=== PATIENT | male | born 1945 | race Caucasian/White ===

== ENCOUNTER 2017-11-25 13:10 | Observation (INO) | payer MEDICARE, BC ==
[2017-11-25] MEDS ORDERED: Sodium Chloride 0.9% 10 ML Syringe FLUSH PRN ×2 (13:41→18:00)
[2017-11-25] MEDS ORDERED: Aspirin 81 MG Tab.Chew PO ONE (13:43)
[2017-11-25] MEDS ORDERED: Nitroglycerin 0.4 MG Tab.SL SL ONE (13:43)
[2017-11-25 14:27] LABS: CHLORIDE,CL 101 mmol/L (98-107); SODIUM,NA 140 mmol/L (136-145)
[2017-11-25] MEDS ORDERED: Iopamidol 612 MG/ML 100 ML Bottle IVPUSH ONE (14:42)
--- NOTE | 2017-11-25 15:21 | EDM.PDOC ---
ED HPI GENERAL MEDICAL PROBLEM - General Chief Complaint: Cardiovascular Problem Stated Complaint: LEFT ARM PAIN/SOB Time Seen by Provider: 11/25/17 13:15 Source of Information: Reports: Patient History Limitations: Reports: No Limitations - History of Present Illness INITIAL COMMENTS - FREE TEXT/NARRATIVE: Pt. presents to ER with complaints of shortness of breath, increased peripheral edema, shortness of breath, and L upper extremity discomfort. Pt. denies recent trauma. Denies any substernal chest, back or jaw pain. He states that he has been experiencing this discomfort intermittently for several days. He states that he takes 160mg of oral lasix divided BID. He perviously had been on metolazone but this was discontinued due to renal failure. Pt. states that his last heart cath was in 2006. He had one stent at that time. He had a artery with 70% lesion at that time but it was not stented. He denies any fever, chills, or recent illness. No nausea, vomiting, or diarrhea. He has not been checking his weight. He relates that he has had a significant increase in his peripheral edema. Onset: Today Location: Reports: Chest, Upper Extremity, Left - Related Data Allergies Allergy/AdvReac Type Severity Reaction Status Date / Time atorvastatin calcium Allergy Other Verified 11/25/17 13:32 [From Lipitor] ezetimibe [From Zetia] Allergy Other Verified 11/25/17 13:32 niacin Allergy Other Verified 11/25/17 13:32 Nuwxfrc-Col-Eck Reductase Allergy Other Verified 11/25/17 13:32 Inhibitor streptokinase Allergy Other Verified 11/25/17 13:32 sulfamethoxazole Allergy Rash Verified 11/25/17 13:32 [From Bactrim] trimethoprim [From Bactrim] Allergy Rash Verified 11/25/17 13:32 metformin AdvReac Diarrhea Verified 11/25/17 13:32 surgical tape Allergy Other Uncoded 05/11/16 08:07 Home Meds: Home Meds Acetaminophen [Tylenol] 650 mg PO Q3H PRN 09/01/15 [History] Albuterol Sulfate [Proventil Hfa] 2 puff INH QID PRN 09/01/15 [History] Amoxicillin 2,000 mg PO ONETIME PRN 09/01/15 [History] Febuxostat [Uloric] 80 mg PO DAILY 09/01/15 [History] Flaxseed [Flaxseed Oil] 1,000 mg PO TID 09/01/15 [History] Furosemide 80 mg PO BID 09/01/15 [History] Hydrocodone/Acetaminophen [Hydrocodon-Acetaminophn 10-325] 1 tab PO TID [History] Metoprolol Tartrate 25 mg PO BID 09/01/15 [History] Pramipexole Di-HCl [Pramipexole Dihydrochloride] 0.5 mg PO TID 09/01/15 [History ] Tamsulosin HCl 0.4 mg PO DAILY 09/01/15 [History] Budesonide [Pulmicort] 0.5 mg NEB BIDRT 02/26/16 [History] Formoterol [Perforomist] 20 mcg NEB BIDRT 02/26/16 [History] Colchicine [Colcrys] 0.6 mg PO DAILY tablet 02/29/16 [Rx] Gabapentin [Neurontin] 100 mg PO BEDTIME 05/05/16 [History] Lisinopril 10 mg PO BEDTIME 05/05/16 [History] Nitroglycerin [IJP: Nitroglycerin] 1 tab SL ASDIRECTED 05/05/16 [History] Aspirin 81 mg PO DAILY 11/25/17 [History] Insulin Degludec [Tresiba Flextouch U-200] 160 unit SQ DAILY 11/25/17 [History] Pramipexole [Mirapex] 0.5 mg PO BEDTIME PRN 11/25/17 [History] Past Medical History HEENT History: Reports: Cataract Cardiovascular History: Reports: High Cholesterol, Hypertension, PTCA, Stents Other Cardiovascular History: stable angina, edema Respiratory History: Reports: COPD, Sleep Apnea Other Respiratory History: emphysema, sleep-related hypoventilation Gastrointestinal History: Reports: Other (See Below) Other Gastrointestinal History: Recent weight loss Genitourinary History: Reports: Chronic Renal Insuffiency, Renal Disease Other Genitourinary History: CKD stage 2 GFR 60-89ml/min Musculoskeletal History: Reports: Back Pain, Chronic Other Musculoskeletal History: RLS, pain in joint (lower leg) Neurological History: Reports: Neuropathy, Peripheral Psychiatric History: Reports: None Endocrine/Metabolic History: Reports: Diabetes, Type II, Obesity/BMI 30+ Hematologic History: Reports: None Immunologic History: Reports: None Oncologic (Cancer) History: Reports: None Other Dermatologic History: thin skin, has one small open site near right forarm IV site - Past Surgical History Head Surgeries/Procedures: Reports: None HEENT Surgical History: Reports: Cataract Surgery Cardiovascular Surgical History: Reports: Coronary Artery Stent GI Surgical History: Reports: Cholecystectomy, Colonoscopy, Hernia, Inguinal Musculoskeletal Surgical History: Reports: Joint Replacement Oncologic Surgical History: Reports: None Social & Family History - Family History Family Medical History: Noncontributory - Tobacco Use Smoking Status *Q: Unknown Ever Smoked ED ROS GENERAL - Review of Systems Review Of Systems: See Below Constitutional: Reports: No Symptoms HEENT: Reports: No Symptoms Respiratory: Reports: No Symptoms Cardiovascular: Reports: Chest Pain, Edema Endocrine: Reports: No Symptoms GI/Abdominal: Reports: No Symptoms : Reports: No Symptoms Musculoskeletal: Reports: Arm Pain (left) Skin: Reports: No Symptoms Neurological: Reports: No Symptoms Psychiatric: Reports: No Symptoms Hematologic/Lymphatic: Reports: No Symptoms Immunologic: Reports: No Symptoms ED EXAM, GENERAL - Physical Exam Exam: See Below Exam Limited By: No Limitations General Appearance: Alert, WD/WN, No Apparent Distress Eye Exam: Bilateral Eye: EOMI, Normal Fundi, Normal Inspection, PERRL Ears: Normal External Exam, Normal Canal, Hearing Grossly Normal, Normal TMs Nose: Normal Inspection, Normal Mucosa, No Blood Throat/Mouth: Normal Inspection, Normal Lips, Normal Teeth, Normal Gums, Normal Oropharynx, Normal Voice, No Airway Compromise Head: Atraumatic, Normocephalic Neck: Normal Inspection, Supple, Non-Tender, Full Range of Motion Respiratory/Chest: Chest Non-Tender, Decreased Breath Sounds, Crackles Cardiovascular: Normal Peripheral Pulses, Regular Rate, Rhythm, No Edema, No Gallop, No JVD, No Murmur, No Rub Peripheral Pulses: 4+: Radial (L), Radial (R) GI/Abdominal: Normal Bowel Sounds, Soft, Non-Tender, No Organomegaly, No Distention, No Abnormal Bruit, No Mass Extremities: Normal Range of Motion, Non-Tender, Pedal Edema Neurological: Alert, Oriented, CN II-XII Intact, Normal Cognition, Normal Gait, Normal Reflexes, No Motor/Sensory Deficits Psychiatric: Normal Affect, Normal Mood Skin Exam: Warm, Dry, Intact, Normal Color, No Rash EKG INTERPRETATION EKG Date: 11/25/17 Rhythm: NSR [place]: Normal P-Wave: Present QRS: Normal ST-T: Normal OR/PQ Interval: first degree AV block. No ST changes. Course - Vital Signs Last Recorded V/S: Last Vital Signs Temp 37.5 C 11/25/17 16:39 Pulse 73 11/25/17 16:39 Resp 22 H 11/25/17 16:39 BP 131/67 11/25/17 16:39 Pulse Ox 90 L 11/25/17 16:47 - Orders/Labs/Meds Orders: Active Orders 24 hr Category Date Time Status Chest 2V [CR] Stat Exams 11/25/17 13:41 Taken PE Chest [Ang Chest] [CT] Stat Exams 11/25/17 14:38 Taken Sodium Chloride 0.9% [Saline Flush] Med 11/25/17 13:41 Active 10 ml FLUSH ASDIRECTED PRN Peripheral IV Insertion Adult [OM.PC] Routine Oth 11/25/17 13:42 Ordered Medication Orders Acetaminophen (Tylenol) 650 mg PO Q3H PRN PRN Reason: Pain Hydrocodone Bitart/Acetaminophen ([place] 325-10 Mg) 1 tab PO TID [facility] Aspirin (Aspirin) 81 mg PO DAILY [facility] Budesonide (Pulmicort) 0.5 mg NEB BIDRT [facility] Colchicine (Colcrys) 0.6 mg PO DAILY [facility] Enoxaparin Sodium (Lovenox) 40 mg SUBCUT DAILY [facility] Last Admin: 11/25/17 16:53 Dose: 40 mg Furosemide (Lasix) 80 mg PO BID [facility] Gabapentin (Neurontin) 100 mg PO BEDTIME [facility] Sodium Chloride (Normal Saline) 500 mls @ 1,000 mls/hr IV .BOLUS ONE Stop: 11/25/17 17:28 Lisinopril (Prinivil) 10 mg PO BEDTIME [facility] Metoprolol Tartrate (Lopressor) 25 mg PO BID [facility] Non-Formulary Medication (Febuxostat [Uloric]) 80 mg PO DAILY [facility] Non-Formulary Medication (Formoterol [Perforomist]) 20 mcg NEB BIDRT [facility] Non-Formulary Medication (Insulin Degludec [Tresiba Flextouch U-200]) 160 unit SQ DAILY [facility] Pramipexole Dihydrochloride (Mirapex) 0.5 mg PO TID [facility] Pramipexole Dihydrochloride (Mirapex) 0.5 mg PO BEDTIME PRN PRN Reason: Other Sodium Chloride (Saline Flush) 10 ml FLUSH ASDIRECTED PRN PRN Reason: Keep Vein Open Tamsulosin HCl (Flomax) 0.4 mg PO DAILY [facility] Labs: Laboratory Tests 11/25/17 11/25/17 11/25/17 Range/Units 13:50 13:50 13:50 WBC 7.6 (4.0-10.0) x10^3/uL RBC 4.87 (4.5-6.0) x10^6/uL Hgb 14.7 (14.0-18.0) g/dL Hct 46.5 (40.0-52.0) % MCV 95.5 H (78.0-93.0) fL MCH 30.2 (26.0-32.0) pg MCHC 31.6 L (32.0-36.0) g/dL RDW Coeff of Denise 15.4 H (10.0-15.0) % Plt Count 128 L (130-400) x10^3/uL Neut % (Auto) 69.7 (50.0-80.0) % Lymph % (Auto) 18.1 L (25.0-50.0) % [place] % (Auto) 10.1 (2.0-11.0) % Eos % (Auto) 1.4 (0.0-4.0) % Baso % (Auto) 0.7 (0.2-1.2) % PT 12.9 H (9.6-11.4) SEC INR 1.2 L (2.0-3.5) D-Dimer, Quantitative (<=0.58) mg/LFEU Sodium 140 (136-145) mmol/L Potassium 3.2 L (3.5-5.1) mmol/L Chloride 101 (98-107) mmol/L Carbon Dioxide 33 H (21-32) mmol/L Anion Gap 9.2 L (10-20) mmol/L BUN 18 (7-18) mg/dL Creatinine 1.3 (0.70-1.30) mg/dL Est Cr Clr Drug Dosing TNP Estimated GFR (MDRD) 54 Glucose 155 H (74-106) mg/dL Lactic Acid (0.4-2.0) mmol/L Calcium 9.0 (8.5-10.1) mg/dL Corrected Calcium 9.40 (8.5-10.1) mg/dL Phosphorus 2.9 (2.6-4.7) mg/dL Magnesium 1.6 L (1.8-2.4) mg/dL Total Bilirubin 1.4 H (0.2-1.0) mg/dL AST 42 H (15-37) U/L ALT 29 (16-63) U/L Alkaline Phosphatase 54 (46-116) U/L Troponin I < 0.017 (<=0.056) ng/mL C-Reactive Protein 2.5 H (<=0.9) mg/dL NT-Pro-B Natriuret Pep 136 H (<=125) pg/mL Total Protein 7.7 (6.4-8.2) g/dL Albumin 3.5 (3.4-5.0) g/dL Globulin 4.2 Albumin/Globulin Ratio 0.83 11/25/17 11/25/17 Range/Units 13:50 13:50 WBC (4.0-10.0) x10^3/uL RBC (4.5-6.0) x10^6/uL Hgb (14.0-18.0) g/dL Hct (40.0-52.0) % MCV (78.0-93.0) fL MCH (26.0-32.0) pg MCHC (32.0-36.0) g/dL RDW Coeff of Denise (10.0-15.0) % Plt Count (130-400) x10^3/uL Neut % (Auto) (50.0-80.0) % Lymph % (Auto) (25.0-50.0) % [place] % (Auto) (2.0-11.0) % Eos % (Auto) (0.0-4.0) % Baso % (Auto) (0.2-1.2) % PT (9.6-11.4) SEC INR (2.0-3.5) D-Dimer, Quantitative 0.76 H (<=0.58) mg/LFEU Sodium (136-145) mmol/L Potassium (3.5-5.1) mmol/L Chloride (98-107) mmol/L Carbon Dioxide (21-32) mmol/L Anion Gap (10-20) mmol/L BUN (7-18) mg/dL Creatinine (0.70-1.30) mg/dL Est Cr Clr Drug Dosing Estimated GFR (MDRD) Glucose (74-106) mg/dL Lactic Acid 1.9 (0.4-2.0) mmol/L Calcium (8.5-10.1) mg/dL Corrected Calcium (8.5-10.1) mg/dL Phosphorus (2.6-4.7) mg/dL Magnesium (1.8-2.4) mg/dL Total Bilirubin (0.2-1.0) mg/dL AST (15-37) U/L ALT (16-63) U/L Alkaline Phosphatase (46-116) U/L Troponin I (<=0.056) ng/mL C-Reactive Protein (<=0.9) mg/dL NT-Pro-B Natriuret Pep (<=125) pg/mL Total Protein (6.4-8.2) g/dL Albumin (3.4-5.0) g/dL Globulin Albumin/Globulin Ratio Meds: Medications Generic Name Dose Route Start Last Admin Trade Name Freq PRN Reason Stop Dose Admin Acetaminophen 650 mg 11/25/17 16:59 Tylenol PO Q3H PRN Pain Hydrocodone Bitart/Acetaminophen 1 tab 11/25/17 20:00 [place] 325-10 Mg PO TID [facility] Aspirin 81 mg 11/26/17 08:00 Aspirin PO DAILY [facility] Budesonide 0.5 mg 11/25/17 20:00 Pulmicort NEB BIDRT [facility] Colchicine 0.6 mg 11/26/17 08:00 Colcrys PO DAILY [facility] Enoxaparin Sodium 40 mg 11/25/17 16:15 11/25/17 16:53 Lovenox SUBCUT 40 mg DAILY [facility] Administration Furosemide 80 mg 11/25/17 20:00 Lasix PO BID [facility] Gabapentin 100 mg 11/25/17 20:00 Neurontin PO BEDTIME [facility] Sodium Chloride 500 mls @ 1,000 mls/hr 11/25/17 16:59 Normal Saline IV 11/25/17 17:28 .BOLUS ONE Lisinopril 10 mg 11/25/17 20:00 Prinivil PO BEDTIME [facility] Metoprolol Tartrate 25 mg 11/25/17 20:00 Lopressor PO BID [facility] Non-Formulary Medication 80 mg 11/26/17 08:00 Febuxostat [Uloric] PO DAILY [facility] Non-Formulary Medication 20 mcg 11/25/17 20:00 Formoterol [Perforomist] NEB BIDRT [facility] Non-Formulary Medication 160 unit 11/26/17 08:00 Insulin Degludec [Tresiba Flextouch U-200] SQ DAILY [facility] Pramipexole Dihydrochloride 0.5 mg 11/25/17 20:00 Mirapex PO TID [facility] Pramipexole Dihydrochloride 0.5 mg 11/25/17 16:59 Mirapex PO BEDTIME PRN Other Sodium Chloride 10 ml 11/25/17 13:41 Saline Flush FLUSH ASDIRECTED PRN Keep Vein Open Tamsulosin HCl 0.4 mg 11/26/17 08:00 Flomax PO DAILY [facility] Discontinued Medications Generic Name Dose Route Start Last Admin Trade Name Freq PRN Reason Stop Dose Admin Aspirin 324 mg 11/25/17 13:43 11/25/17 13:15 Aspirin PO 11/25/17 13:44 324 mg ONETIME ONE Administration Iopamidol 100 ml 11/25/17 14:42 11/25/17 14:53 Isovue-300 (61%) IVPUSH 11/25/17 14:43 100 ml ONETIME ONE Administration Nitroglycerin 0.4 mg 11/25/17 13:43 11/25/17 13:52 Nitrostat SL 11/25/17 13:44 0.4 mg ONETIME ONE Administration Departure - Departure Time of Disposition: 15:00 Disposition: Refer to Observation Condition: Good Clinical Impression: CHF (congestive heart failure) - My Orders Last 24 Hours: My Active Orders 11/25/17 13:41 Chest 2V [CR] Stat Sodium Chloride 0.9% [Saline Flush] 10 ml FLUSH ASDIRECTED PRN 11/25/17 13:42 Peripheral IV Insertion Adult [OM.PC] Routine 11/25/17 14:38 PE Chest [Ang Chest] [CT] Stat - Assessment/Plan Last 24 Hours: My Active Orders 11/25/17 13:41 Chest 2V [CR] Stat Sodium Chloride 0.9% [Saline Flush] 10 ml FLUSH ASDIRECTED PRN 11/25/17 13:42 Peripheral IV Insertion Adult [OM.PC] Routine 11/25/17 14:38 PE Chest [Ang Chest] [CT] Stat
[2017-11-25] MEDS: Enoxaparin 40 MG/0.4 ML Syringe SUBCUT SCH (16:53)
[2017-11-25] MEDS ORDERED: Sodium Chloride 0.9% 500 ML IV ONE (16:59)
[2017-11-25] MEDS ORDERED: Pramipexole 0.5 MG Tab PO PRN (16:59)
[2017-11-25] MEDS ORDERED: Acetaminophen 325 MG Tab PO PRN (16:59)
[2017-11-25] MEDS ORDERED: Tamsulosin 0.4 MG Cap.ER PO SCH (20:00)
[2017-11-25] MEDS ORDERED: Lisinopril 10 MG Tab PO SCH (20:00)
[2017-11-25] MEDS ORDERED: Gabapentin 100 MG Cap PO SCH (20:00)
[2017-11-25] MEDS: Metoprolol Tartrate 25 MG Tab PO SCH (21:37)
[2017-11-25] MEDS: Pramipexole 0.5 MG Tab PO SCH (21:38)
[2017-11-25] MEDS: Acetaminophen/HYDROcodone 325-10 MG Tab PO SCH (21:38)
[2017-11-25] MEDS: Albuterol 0.083% 2.5 MG/3 ML Neb Soln INH SCH (21:41)
[2017-11-25] MEDS: Budesonide 0.5 MG/2 ML Neb Susp NEB SCH (21:41)
[2017-11-26] MEDS: Albuterol 0.083% 2.5 MG/3 ML Neb Soln INH SCH (06:59)
[2017-11-26] MEDS: Budesonide 0.5 MG/2 ML Neb Susp NEB SCH (06:59)
[2017-11-26] MEDS ORDERED: Aspirin 81 MG Tab.Chew PO SCH (08:00)
[2017-11-26] MEDS ORDERED: INSULIN DEGLUDEC 160 UNIT SQ SCH (08:00)
[2017-11-26] MEDS ORDERED: FEBUXOSTAT 80 MG PO SCH (08:00)
[2017-11-26] MEDS ORDERED: Furosemide 80 MG Tab PO SCH (08:00)
[2017-11-26] MEDS ORDERED: Colchicine 0.6 MG Tab PO SCH (08:00)
[2017-11-26] MEDS: Acetaminophen/HYDROcodone 325-10 MG Tab PO SCH (08:01)
[2017-11-26] MEDS: Pramipexole 0.5 MG Tab PO SCH (08:04)
[2017-11-26] MEDS: Metoprolol Tartrate 25 MG Tab PO SCH (08:06)
[2017-11-26] MEDS: Enoxaparin 40 MG/0.4 ML Syringe SUBCUT SCH (08:07)
--- NOTE | 2017-11-26 09:19 | PCM.DCSUM1 ---
Discharge Summary - Hospital Course Brief History: Patient with history of CAD admitted with chest and left arm pain. History of CHF and COPD. Stents placed around 2008. Admitted to trend Troponin level due to history and risk. - Discharge Data Discharge Date: 11/26/17 Discharge Disposition: Home, Self-Care 01 Condition: Good - Discharge Diagnosis/Problem(s) (1) Chest pain due to CAD SNOMED Code(s): 900640310 ICD Code: R07.9 - CHEST PAIN, UNSPECIFIED; I25.10 - ATHSCL HEART DISEASE OF [place] CORONARY ARTERY W/O ANG PCTRS Status: Acute Priority: Medium Current Visit: Yes (2) CHF (congestive heart failure) SNOMED Code(s): 75892450 ICD Code: I50.9 - HEART FAILURE, UNSPECIFIED Status: Acute Priority: Medium Current Visit: Yes Qualifiers: Heart failure type: unspecified Heart failure chronicity: acute on chronic Qualified Code(s): I50.9 - Heart failure, unspecified - Patient Instructions Diet: Heart Healthy Diet, Low Sodium Activity: As Tolerated Other/Special Instructions: Follow up with Dr. Panchal this week. You also should see cardiology to determine if you need additional testing. You may need to have another angiogram to determine whether or not you need stents placed. This is especially important due to your history. - Discharge Plan Home Medications: Home Meds Acetaminophen [Tylenol] 650 mg PO Q3H PRN 09/01/15 [History] Albuterol Sulfate [Proventil Hfa] 2 puff INH QID PRN 09/01/15 [History] Amoxicillin 2,000 mg PO ONETIME PRN 09/01/15 [History] Febuxostat [Uloric] 80 mg PO DAILY 09/01/15 [History] Flaxseed [Flaxseed Oil] 1,000 mg PO TID 09/01/15 [History] Furosemide 80 mg PO BID 09/01/15 [History] Hydrocodone/Acetaminophen [Hydrocodon-Acetaminophn 10-325] 1 tab PO TID [History] Metoprolol Tartrate 25 mg PO BID 09/01/15 [History] Pramipexole Di-HCl [Pramipexole Dihydrochloride] 0.5 mg PO TID 09/01/15 [History ] Tamsulosin HCl 0.4 mg PO DAILY 09/01/15 [History] Budesonide [Pulmicort] 0.5 mg NEB BIDRT 02/26/16 [History] Formoterol [Perforomist] 20 mcg NEB BIDRT 02/26/16 [History] Colchicine [Colcrys] 0.6 mg PO DAILY tablet 02/29/16 [Rx] Gabapentin [Neurontin] 100 mg PO BEDTIME 05/05/16 [History] Lisinopril 10 mg PO BEDTIME 05/05/16 [History] Nitroglycerin [IJP: Nitroglycerin] 1 tab SL ASDIRECTED 05/05/16 [History] Aspirin 81 mg PO DAILY 11/25/17 [History] Insulin Degludec [Tresiba Flextouch U-200] 160 unit SQ DAILY 11/25/17 [History] Pramipexole [Mirapex] 0.5 mg PO BEDTIME PRN 11/25/17 [History] Forms: ED Department Discharge Referrals: Janell Panchal DO [Primary Care Provider] - - Discharge Summary/Plan Comment DC Time >30 min.: Yes Discharge Summary/Plan Comment: 1. Follow up with Dr. Panchal 2. Cardiology follow up 3. Limit your fluids to no more than 2 liters 4. Low salt diet 5. Return or call if you have new onset chest pain or shortness of breath that is new and worsening than your normal - General Info Date of Service: 11/26/17 Admission Dx/Problem (Free Text: chest pain CHF COPD Functional Status: Reports: Pain Controlled - Review of Systems General: Reports: No Symptoms HEENT: Reports: No Symptoms Pulmonary: Reports: Shortness of Breath (baseline) Cardiovascular: Reports: Edema (3+ pitting edema to legs bilaterally) Gastrointestinal: Reports: No Symptoms Genitourinary: Reports: No Symptoms Musculoskeletal: Reports: No Symptoms Skin: Reports: No Symptoms Neurological: Reports: No Symptoms Psychiatric: Reports: No Symptoms - Patient Data Vitals - Most Recent: Last Vital Signs Temp 36.7 C 11/26/17 06:00 Pulse 64 11/26/17 06:00 Resp 20 11/26/17 06:00 BP 122/55 L 11/26/17 08:06 Pulse Ox 90 L 11/26/17 07:37 Weight - Most Recent: 149.912 kg I&O - Last 24 hours: Intake & Output 11/25/17 11/26/17 11/26/17 22:59 06:59 14:59 Intake Total 2098 720 360 Output Total 375 1300 Balance 1722 -580 360 Lab Results - Last 24 hrs: Laboratory Results - last 24 hr 11/25/17 11/25/17 11/25/17 Range/Units 13:50 13:50 13:50 WBC 7.6 (4.0-10.0) x10^3/uL RBC 4.87 (4.5-6.0) x10^6/uL Hgb 14.7 (14.0-18.0) g/dL Hct 46.5 (40.0-52.0) % MCV 95.5 H (78.0-93.0) fL MCH 30.2 (26.0-32.0) pg MCHC 31.6 L (32.0-36.0) g/dL RDW Coeff of Denise 15.4 H (10.0-15.0) % Plt Count 128 L (130-400) x10^3/uL Neut % (Auto) 69.7 (50.0-80.0) % Lymph % (Auto) 18.1 L (25.0-50.0) % [place] % (Auto) 10.1 (2.0-11.0) % Eos % (Auto) 1.4 (0.0-4.0) % Baso % (Auto) 0.7 (0.2-1.2) % PT 12.9 H (9.6-11.4) SEC INR 1.2 L (2.0-3.5) D-Dimer, Quantitative (<=0.58) mg/LFEU Sodium 140 (136-145) mmol/L Potassium 3.2 L (3.5-5.1) mmol/L Chloride 101 (98-107) mmol/L Carbon Dioxide 33 H (21-32) mmol/L Anion Gap 9.2 L (10-20) mmol/L BUN 18 (7-18) mg/dL Creatinine 1.3 (0.70-1.30) mg/dL Est Cr Clr Drug Dosing TNP Estimated GFR (MDRD) 54 Glucose 155 H (74-106) mg/dL POC Glucose (74-106) mg/dL Lactic Acid (0.4-2.0) mmol/L Calcium 9.0 (8.5-10.1) mg/dL Corrected Calcium 9.40 (8.5-10.1) mg/dL Phosphorus 2.9 (2.6-4.7) mg/dL Magnesium 1.6 L (1.8-2.4) mg/dL Total Bilirubin 1.4 H (0.2-1.0) mg/dL AST 42 H (15-37) U/L ALT 29 (16-63) U/L Alkaline Phosphatase 54 (46-116) U/L Troponin I < 0.017 (<=0.056) ng/mL C-Reactive Protein 2.5 H (<=0.9) mg/dL NT-Pro-B Natriuret Pep 136 H (<=125) pg/mL Total Protein 7.7 (6.4-8.2) g/dL Albumin 3.5 (3.4-5.0) g/dL Globulin 4.2 Albumin/Globulin Ratio 0.83 11/25/17 11/25/17 11/25/17 Range/Units 13:50 13:50 16:56 WBC (4.0-10.0) x10^3/uL RBC (4.5-6.0) x10^6/uL Hgb (14.0-18.0) g/dL Hct (40.0-52.0) % MCV (78.0-93.0) fL MCH (26.0-32.0) pg MCHC (32.0-36.0) g/dL RDW Coeff of Denise (10.0-15.0) % Plt Count (130-400) x10^3/uL Neut % (Auto) (50.0-80.0) % Lymph % (Auto) (25.0-50.0) % [place] % (Auto) (2.0-11.0) % Eos % (Auto) (0.0-4.0) % Baso % (Auto) (0.2-1.2) % PT (9.6-11.4) SEC INR (2.0-3.5) D-Dimer, Quantitative 0.76 H (<=0.58) mg/LFEU Sodium (136-145) mmol/L Potassium (3.5-5.1) mmol/L Chloride (98-107) mmol/L Carbon Dioxide (21-32) mmol/L Anion Gap (10-20) mmol/L BUN (7-18) mg/dL Creatinine (0.70-1.30) mg/dL Est Cr Clr Drug Dosing Estimated GFR (MDRD) Glucose (74-106) mg/dL POC Glucose 136 H (74-106) mg/dL Lactic Acid 1.9 (0.4-2.0) mmol/L Calcium (8.5-10.1) mg/dL Corrected Calcium (8.5-10.1) mg/dL Phosphorus (2.6-4.7) mg/dL Magnesium (1.8-2.4) mg/dL Total Bilirubin (0.2-1.0) mg/dL AST (15-37) U/L ALT (16-63) U/L Alkaline Phosphatase (46-116) U/L Troponin I (<=0.056) ng/mL C-Reactive Protein (<=0.9) mg/dL NT-Pro-B Natriuret Pep (<=125) pg/mL Total Protein (6.4-8.2) g/dL Albumin (3.4-5.0) g/dL Globulin Albumin/Globulin Ratio 11/25/17 11/25/17 11/26/17 Range/Units 18:45 22:03 06:10 WBC (4.0-10.0) x10^3/uL RBC (4.5-6.0) x10^6/uL Hgb (14.0-18.0) g/dL Hct (40.0-52.0) % MCV (78.0-93.0) fL MCH (26.0-32.0) pg MCHC (32.0-36.0) g/dL RDW Coeff of Denise (10.0-15.0) % Plt Count (130-400) x10^3/uL Neut % (Auto) (50.0-80.0) % Lymph % (Auto) (25.0-50.0) % [place] % (Auto) (2.0-11.0) % Eos % (Auto) (0.0-4.0) % Baso % (Auto) (0.2-1.2) % PT (9.6-11.4) SEC INR (2.0-3.5) D-Dimer, Quantitative (<=0.58) mg/LFEU Sodium (136-145) mmol/L Potassium (3.5-5.1) mmol/L Chloride (98-107) mmol/L Carbon Dioxide (21-32) mmol/L Anion Gap (10-20) mmol/L BUN (7-18) mg/dL Creatinine (0.70-1.30) mg/dL Est Cr Clr Drug Dosing Estimated GFR (MDRD) Glucose (74-106) mg/dL POC Glucose 167 H 133 H (74-106) mg/dL Lactic Acid (0.4-2.0) mmol/L Calcium (8.5-10.1) mg/dL Corrected Calcium (8.5-10.1) mg/dL Phosphorus (2.6-4.7) mg/dL Magnesium (1.8-2.4) mg/dL Total Bilirubin (0.2-1.0) mg/dL AST (15-37) U/L ALT (16-63) U/L Alkaline Phosphatase (46-116) U/L Troponin I < 0.017 (<=0.056) ng/mL C-Reactive Protein (<=0.9) mg/dL NT-Pro-B Natriuret Pep (<=125) pg/mL Total Protein (6.4-8.2) g/dL Albumin (3.4-5.0) g/dL Globulin Albumin/Globulin Ratio 11/26/17 11/26/17 Range/Units 07:33 07:33 WBC 6.2 (4.0-10.0) x10^3/uL RBC 4.71 (4.5-6.0) x10^6/uL Hgb 14.6 (14.0-18.0) g/dL Hct 45.1 (40.0-52.0) % MCV 95.8 H (78.0-93.0) fL MCH 31.0 (26.0-32.0) pg MCHC 32.4 (32.0-36.0) g/dL RDW Coeff of Denise 15.4 H (10.0-15.0) % Plt Count 122 L (130-400) x10^3/uL Neut % (Auto) (50.0-80.0) % Lymph % (Auto) (25.0-50.0) % [place] % (Auto) (2.0-11.0) % Eos % (Auto) (0.0-4.0) % Baso % (Auto) (0.2-1.2) % PT (9.6-11.4) SEC INR (2.0-3.5) D-Dimer, Quantitative (<=0.58) mg/LFEU Sodium (136-145) mmol/L Potassium (3.5-5.1) mmol/L Chloride (98-107) mmol/L Carbon Dioxide (21-32) mmol/L Anion Gap (10-20) mmol/L BUN (7-18) mg/dL Creatinine (0.70-1.30) mg/dL Est Cr Clr Drug Dosing Estimated GFR (MDRD) Glucose (74-106) mg/dL POC Glucose (74-106) mg/dL Lactic Acid (0.4-2.0) mmol/L Calcium (8.5-10.1) mg/dL Corrected Calcium (8.5-10.1) mg/dL Phosphorus (2.6-4.7) mg/dL Magnesium (1.8-2.4) mg/dL Total Bilirubin (0.2-1.0) mg/dL AST (15-37) U/L ALT (16-63) U/L Alkaline Phosphatase (46-116) U/L Troponin I < 0.017 (<=0.056) ng/mL C-Reactive Protein (<=0.9) mg/dL NT-Pro-B Natriuret Pep (<=125) pg/mL Total Protein (6.4-8.2) g/dL Albumin (3.4-5.0) g/dL Globulin Albumin/Globulin Ratio Med Orders - Current: Current Medications Acetaminophen (Tylenol) 650 mg PO Q3H PRN PRN Reason: Pain Hydrocodone Bitart/Acetaminophen ([place] 325-10 Mg) 1 tab PO TID@0800,1300,2000 [facility] Last Admin: 11/26/17 08:01 Dose: 1 tab Albuterol (Proventil Neb Soln) 2.5 mg INH QIDRT [facility] Last Admin: 11/26/17 06:59 Dose: 2.5 mg Aspirin (Aspirin) 81 mg PO DAILY [facility] Last Admin: 11/26/17 08:06 Dose: 81 mg Budesonide (Pulmicort) 0.5 mg NEB BIDRT [facility] Last Admin: 11/26/17 06:59 Dose: 0.5 mg Colchicine (Colcrys) 0.6 mg PO DAILY [facility] Last Admin: 11/26/17 08:05 Dose: 0.6 mg Enoxaparin Sodium (Lovenox) 40 mg SUBCUT DAILY [facility] Last Admin: 11/26/17 08:07 Dose: 40 mg Furosemide (Lasix) 80 mg PO BID@0800,1500 [facility] Last Admin: 11/26/17 08:05 Dose: 80 mg Gabapentin (Neurontin) 100 mg PO BEDTIME [facility] Last Admin: 11/25/17 21:40 Dose: 100 mg Lisinopril (Prinivil) 10 mg PO BEDTIME [facility] Last Admin: 11/25/17 21:40 Dose: 10 mg Metoprolol Tartrate (Lopressor) 25 mg PO BID [facility] Last Admin: 11/26/17 08:06 Dose: 25 mg Febuxostat [Uloric] (80mg) 80 mg PO DAILY [facility] Insulin Degludec [ Tresiba Flextouch U- 200] 160units 160 unit SQ DAILY [facility] Pramipexole Dihydrochloride (Mirapex) 0.5 mg PO TID@0800,1300,2000 [facility] Last Admin: 11/26/17 08:04 Dose: 0.5 mg Pramipexole Dihydrochloride (Mirapex) 0.5 mg PO BEDTIME PRN PRN Reason: Other Sodium Chloride (Saline Flush) 10 ml FLUSH ASDIRECTED PRN PRN Reason: Keep Vein Open Last Admin: 11/26/17 08:16 Dose: 10 ml Sodium Chloride (Saline Flush) 10 ml FLUSH ASDIRECTED PRN PRN Reason: Keep Vein Open Tamsulosin HCl (Flomax) 0.4 mg PO BEDTIME [facility] Last Admin: 11/25/17 21:40 Dose: 0.4 mg Discontinued Medications Aspirin (Aspirin) 324 mg PO ONETIME ONE Stop: 11/25/17 13:44 Last Admin: 11/25/17 13:15 Dose: 324 mg Sodium Chloride (Normal Saline) 500 mls @ 1,000 mls/hr IV .BOLUS ONE Stop: 11/25/17 17:28 Last Admin: 11/25/17 18:47 Dose: 1,000 mls/hr Iopamidol (Isovue-300 (61%)) 100 ml IVPUSH ONETIME ONE Stop: 11/25/17 14:43 Last Admin: 11/25/17 14:53 Dose: 100 ml Nitroglycerin (Nitrostat) 0.4 mg SL ONETIME ONE Stop: 11/25/17 13:44 Last Admin: 11/25/17 13:52 Dose: 0.4 mg - Exam General: Reports: Alert, Oriented HEENT: Reports: Pupils Equal, Pupils Reactive, EOMI, Mucous Membr. Moist/[place] Neck: Reports: Supple Lungs: Reports: Clear to Auscultation, Normal Respiratory Effort Cardiovascular: Reports: Regular Rate, Regular Rhythm GI/Abdominal Exam: Normal Bowel Sounds, Soft, Non-Tender, No Organomegaly, No Distention, No Abnormal Bruit, No Mass, Pelvis Stable Extremities: Normal Range of Motion, Pedal Edema, Slow Capillary Refill Skin: Reports: Warm, Dry, Intact Neurological: Reports: No New Focal Deficit Psy/Mental Status: Reports: Alert, Normal Affect, Normal Mood
[2017-11-26 09:55] VITALS: BP 116/63
== END 2017-11-26 10:55 | disposition home or self-care (01) ==
LOC: VM.ED 13:10 → VM.MS 14:50
PROVIDERS: ADMIT Physician Assistant; ATTEND Physician Assistant
DX: R07.9 Chest pain, unspecified (principal); M79.602 Pain in left arm; I25.10 Atherosclerotic heart disease of native coronary artery without angina pectoris; I50.9 Heart failure, unspecified; J44.9 Chronic obstructive pulmonary disease, unspecified; Z79.4 Long term (current) use of insulin; Z79.82 Long term (current) use of aspirin; Z79.899 Other long term (current) drug therapy; Z88.8 Allergy status to other drugs, medicaments and biological substances; Z91.048 Other nonmedicinal substance allergy status
CPT/HCPCS: 36415; 71046; 71275; 80053; 82962; 83605; 83735; 83880; 84100; 84484; 85025; 85027; 85379; 85610; 86140; 93005; 93010; 94640; 94760; 96360; 96372; 99217; 99219; 99285; A9270-GY; G0378; J1650; J7030; J7050; J7620-GY; Q9967

== ENCOUNTER 2018-12-04 14:40 | Inpatient (IN) | payer MEDICARE, BC ==
[2018-12-04] MEDS ORDERED: HYDROmorphone 1 MG/ML Syringe IVPUSH PRN (15:07)
[2018-12-04] MEDS ORDERED: Sodium Chloride 0.9% 10 ML Syringe FLUSH PRN (15:07)
[2018-12-04] MEDS ORDERED: Furosemide 40 MG/4 ML VIAL IV ONE (15:12)
[2018-12-04] MEDS ORDERED: Acetaminophen 325 MG Tab PO PRN (15:49)
[2018-12-04] MEDS ORDERED: Nitroglycerin 0.4 MG Tab.SL SL PRN (15:49)
[2018-12-04] MEDS ORDERED: Albuterol 0.083% 2.5 MG/3 ML Neb Soln INH PRN (16:12)
[2018-12-04] MEDS: ceFAZolin 1 GM Vial IVPUSH SCH ×2 (16:28→23:12)
[2018-12-04] MEDS: Pramipexole 0.5 MG Tab PO SCH ×2 (16:35→20:18)
[2018-12-04] MEDS: Acetaminophen/HYDROcodone 325-10 MG Tab PO PRN ×2 (16:35→20:35)
[2018-12-04] MEDS: FLAXSEED OIL 1000 MG PO SCH (20:17)
[2018-12-04] MEDS: Metoprolol Tartrate 25 MG Tab PO SCH (20:17)
[2018-12-04] MEDS: Magnesium Chloride 64 MG Tab.ER PO SCH (20:18)
[2018-12-04] MEDS: Budesonide 0.5 MG/2 ML Neb Susp NEB SCH (20:20)
[2018-12-04] MEDS: Albuterol/Ipratropium 3.0-0.5 MG/3 ML Neb Soln NEB SCH (22:25)
[2018-12-04] MEDS: Ipratropium 0.02% 0.5 MG/2.5 ML Neb Soln INH SCH (22:25)
[2018-12-04] MEDS: Arformoterol 15 MCG/2 ML Neb Soln INH SCH (22:25)
--- NOTE | 2018-12-04 23:49 | HP ---
CHIEF COMPLAINT: Right leg pain and swelling. HISTORY OF PRESENT ILLNESS: This is a morbidly obese 73-year-old male with history of heart disease, heart failure, and lymphedema along with diabetes and painful neuropathy, who comes in with worsening right lower extremity pain and swelling that has been going on for quite sometime, but worse over the last 10 days. He was actually seen last week on the and adjustments were made to his diuretics. He was switched to torsemide and metolazone was added, but he only took the torsemide once daily on days he took the metolazone. He has lost 5 pounds. He does feel he is breathing a little bit better, but he admits he is short of breath. He uses his nebulizers for COPD, Pulmicort and Perforomist, but had not got the new nebulizer from the lung doctors. He feels that the pain gets worse as the day goes on, but it definitely comes and goes. He has never had a blood clot before. He does have restless legs and sometimes has taken extra Mirapex and maybe finds that helpful. He has had a previous bilateral knee replacements many years ago like in 2010. He denies any chest pain; when he was in last week, he did have a mildly elevated D-dimer to 1. His proBNP was mildly elevated at 143 and his troponin was negative. ALLERGIES: His allergy list includes glycopyrrolate, rash, shortness of breath; Bactrim, rash; Lipitor, myalgias; metformin, itching; niacin, arrhythmia; statins cause leg pain; streptokinase, overdose; surgical tape causes skin tears; and Zetia causes myalgias. MEDICATIONS: His medication list is reviewed. He was on Lasix 80 mg twice daily, but it was recently changed to Demadex 20 mg twice daily. Zaroxolyn 5 mg 1 dose per week, magnesium 64 twice daily, Zestril 10 mg daily, Tresiba 160 units daily. Mirapex 0.5 three times a day. Allopurinol 300 daily. Nitroglycerin as needed for chest pain. Hydrocodone 10/325 three times a day. Atrovent inhaler as needed. Albuterol inhaler as needed. Metoprolol 25 mg twice daily, colchicine 0.6 daily, Flomax 0.4 daily, Perforomist and Pulmicort DuoNebs, aspirin 81 mg daily, flaxseed 1000 three times a day, Tylenol as needed. PAST MEDICAL HISTORY: Does include a previous admission 1 year ago for chest pain. He had a negative CT PE protocol; BPH with no significant retention recently, on Flomax. He has had superficial gastritis without bleeding in the past, chronic opioid use, chronic kidney disease stage 2. His creatinine was 1 on the , it is unfortunately up over 1.5 today. Controlled diabetes type 2 with diabetic neuropathy on long-term insulin, COPD, severe coronary artery disease. First [place] at age 43 with PTCA. He has had unstable angina in 09/2008 with stenting, diastolic heart failure, previously hospitalized in 2010 for exacerbation. His last echo which was done in 12/2017 showed him to have an EF of 65%. Otherwise, he has had diverticulosis edema, GERD, gout, previous uric acid was like 14, hyperlipidemia, intolerant to statins, essential hypertension, morbid obesity, obstructive sleep apnea on BiPAP, osteoarthritis with previous bilateral knee replacements, painful diabetic neuropathy, restless legs syndrome. PAST SURGICAL HISTORY: Surgically, the patient again has had bilateral knee replacements and on left knee he had a muscle tear after replacement. He had a hernia repair in [place], bowel was into the scrotum. He has had cataract surgery. He has had a cholecystectomy. He has had emergent endotracheal intubation. FAMILY HISTORY: Both parents are . Mother had COPD. SOCIAL HISTORY: He is a retired guzmán. He is . He has been helping in the past with [employer] work, but he has not been able this year. He has 2 children. REVIEW OF SYSTEMS: General: The patient's weight had not really significantly increased over the last few months. In June, he was actually 335. He has not had any fever or chills. HEENT: No sore throat. Cardiac: No chest pain, no palpitations, but has been short of breath. Respiratory: No increase in cough or wheezing. Abdomen: No nausea, vomiting, or diarrhea. Musculoskeletal: He has had the right leg pain and swelling. He has had a lot of itching and some increasing redness. Mental Status: He is alert. He is orientated x3. PHYSICAL EXAMINATION: Vital Signs: On admission to the hospital, the patient's weight was 147.8 kg, temperature 99.4, pulse 84, blood pressure 109/43, respiratory rate 65, and O2 of 90% on 3 L. General: He was in no acute distress. Heart: Regular rate and rhythm with murmur heard. Respiratory: Lungs sounds were clear to auscultation bilaterally today without crackles or wheezes. Abdomen: Nondistended, nontender. Musculoskeletal: The patient did have 2+ edema to that right ankle with lymphedema changes especially over the lateral malleoli area with some central excoriations, but no open sores or drainage. There is tenderness and warmth anteriorly. He did not have any swelling up into the thigh. He had no pain posterior to the knee. Left leg is more like a 1+ edema. There is no redness or warmth there. LABORATORY DATA: Lab work does show a normal white count at 8.2, hemoglobin 14.8, platelets 137. ESR was 28. Kidney function was up to 1.57 creatinine, BUN 39, GFR 44, glucose 146. Sodium 138, potassium 3.8, chloride 92, bicarbonate 33, calcium 10.3. ASSESSMENT AND PLAN: 1. Morbid obesity with lymphedema and right leg pain, concern for cellulitis. The patient will be admitted and placed on IV Ancef for close monitoring, especially given the fact that the patient has had a previous knee replacement. 2. Acute on chronic diastolic heart failure exacerbation. ProBNP was just mildly elevated last week. We will stop his oral diuretics and place him on IV Lasix 40 mg x1. We will reassess in the morning. 3. Acute renal failure secondary to diuresis. We will continue with close monitoring of kidney function while in the hospital. 4. Leg swelling. We will get an ultrasound to rule out deep vein thrombosis. Options were to go to [place] today, [place] tomorrow, or wait here and do it Tuesday. The patient was comfortable with the plan to be admitted to work on the infection and fluid control. We will keep him on Lovenox 40 mg twice daily in the meantime. 5. Diabetes type 2. We will continue his home insulin with q.i.d. Accu-Cheks, if blood sugars are up over 250, we will add some meal insulin. 6. History of gout. We will continue colchicine. 7. Severe chronic obstructive pulmonary disease. We will continue his home nebulizers, but I am going to hold off on Yupelri as we do not even have that inhaler available here. 8. Chronic pain related to painful neuropathy. He is on a scheduled hydrocodone and we will also have IV Dilaudid available. 9. Benign prostatic hyperplasia. We will check a bladder scan, if greater than 600, I will place a Pedroza. We will continue him on Flomax. PLAN: I will also hold his lisinopril due to renal failure. I will give him a dose of IV Lasix, follow lab work tomorrow. We will treat him with IV Ancef. He is afebrile. White count is normal. I did not pursue blood cultures. For his obstructive sleep apnea, he has his home BiPAP along and we will use that. The plan at this point was discussed with the patient and his . Initially, he thought about just being code level 3, but his and him decided he would be a code level 1. For DVT prophylaxis, he is on the Lovenox. MKA: 12/04/2018 20:37:42 MODL: 12/04/2018 23:39:37 /[id number]
[2018-12-05] MEDS ORDERED: Furosemide 20 MG/2 ML VIAL IV ONE (06:56)
[2018-12-05] MEDS: Budesonide 0.5 MG/2 ML Neb Susp NEB SCH ×2 (07:21→20:59)
[2018-12-05] MEDS: Ipratropium 0.02% 0.5 MG/2.5 ML Neb Soln INH SCH (07:22)
[2018-12-05] MEDS: Arformoterol 15 MCG/2 ML Neb Soln INH SCH ×3 (07:22→22:54)
[2018-12-05] MEDS: Albuterol/Ipratropium 3.0-0.5 MG/3 ML Neb Soln NEB SCH ×4 (07:22→22:55)
[2018-12-05] MEDS: Pramipexole 0.5 MG Tab PO SCH ×3 (07:37→21:01)
[2018-12-05] MEDS: Allopurinol 300 MG Tab PO SCH (07:37)
[2018-12-05] MEDS: Magnesium Chloride 64 MG Tab.ER PO SCH ×2 (07:37→21:02)
[2018-12-05] MEDS: Acetaminophen/HYDROcodone 325-10 MG Tab PO PRN ×3 (07:37→21:00)
[2018-12-05] MEDS: Metoprolol Tartrate 25 MG Tab PO SCH ×2 (07:37→21:01)
[2018-12-05] MEDS: FLAXSEED OIL 1000 MG PO SCH ×3 (07:38→21:04)
[2018-12-05] MEDS: Colchicine 0.6 MG Tab PO SCH (07:38)
[2018-12-05] MEDS: ceFAZolin 1 GM Vial IVPUSH SCH ×3 (07:38→23:22)
[2018-12-05 07:42] LABS: ANION GAP 12.5 mmol/L (10-20)
[2018-12-05] MEDS ORDERED: Aspirin 81 MG Tab.EC PO SCH ×2 (08:00→20:00)
[2018-12-05] MEDS ORDERED: Tamsulosin 0.4 MG Cap.ER PO SCH ×2 (08:00→20:00)
[2018-12-05] MEDS: Enoxaparin 40 MG/0.4 ML Syringe SUBCUT SCH (08:54)
[2018-12-05] MEDS ORDERED: Magnesium Sulfate/Water 2 GM in Premix Bag 1 BAG IV ONE (09:45)
[2018-12-05] MEDS ORDERED: ALBUTEROL PO PRN (10:00)
[2018-12-05] MEDS: IPRATROPIUM PO SCH ×2 (10:20→22:55)
--- NOTE | 2018-12-05 10:46 | CR ---
[id number] RAD/RAD Chest PA And Lateral EXAM: FRONTAL AND LATERAL CHEST INDICATION: Hypoxia. COMPARISON: February 25, 2018. DISCUSSION: Hyperinflation is compatible with underlying chronic obstructive pulmonary disease. Linear scarring in both lung bases is unchanged with no definite acute infiltrates. Early pathology could be obscured by the chronic changes. Stable cardiomegaly with evidence of pulmonary hypertension, but no current pulmonary edema. Multiple mild thoracic compression fractures are unchanged. Chronic right rib fractures. IMPRESSION: 1. No acute findings. Alfred Feliciano MD 12/05/18 1044 Thank you for allowing us to participate in the care of your patient.
[2018-12-05] MEDS ORDERED: Furosemide 20 MG/2 ML VIAL IV SCH (12:00)
[2018-12-05] MEDS: TRESIBA U SQ SCH (12:10)
--- NOTE | 2018-12-05 13:01 | PN ---
Progress Note for DIANE ANDUJAR Date: 12/05/2018 Room #: VM.202 SUBJECTIVE: This is hospital day #2 on a 73-year-old admitted with lymphedema, right leg pain and swelling due to concern for cellulitis. Need to rule out also DVT. He has chronic hypoxia from heart failure and COPD. He has had recent adjustments in his diuretics, which led to a worsening renal function with creatinine up to 1.5. The patient otherwise does not feel like he has been going to the bathroom as much as he normally does after getting IV Lasix. He has missed the hat quite a few times for accurate in's and out's. He feels like his breathing is a same, no better, no worse, but after going to the bathroom off oxygen, he was down to like 84%. He has been refusing the long-acting bronchodilator here since it is different than the one he uses at home. He would actually like to use his ProAir and Atrovent instead of our nebulizer. Otherwise, he denies any chest pain. He has been afebrile. He is on day #2 Ancef. He has multiple concerns about his medications and getting the timing right and pharmacy did speak with him. He also did not require any additional pain medication other than his scheduled 3 times a day hydrocodone. OBJECTIVE: Vital Signs: On exam, his temperature is 98.6, pulse 73, blood pressure 111/46, respiratory rate 22, and O2 of 90% on 2 L. General: He is in no acute distress. Heart: Regular rate and rhythm. S1, S2 without murmur. Lungs: Lung sounds were decreased, but no crackles or wheezes. Abdomen: Nontender. Extremities: Warm and dry. He has 2+ edema and redness over the right leg with 3+ edema of the foot. Redness I feel has improved since yesterday, but he has tender to palpation posteriorly in his calf. Mental Status: He is alert and orientated x3. LABORATORY DATA: His lab work shows white count of 7.6, hemoglobin 14, platelets 142. Sodium 140, potassium 3.5, chloride 97, bicarb 34, BUN 44, creatinine 1.5, stable since yesterday. Glucose 121, magnesium 1.6, bilirubin 1.5, AST 32, ALT 24, CRP 2.3, albumin 3.6. It should be noted that he did have a few PVCs noted on his telemetry and his bladder scan was negative. ASSESSMENT: 1. Acute on chronic diastolic heart failure exacerbation with known ejection fraction of 65%. His proBNP did come back actually normal today. Some of his swelling may be more from right heart failure and chronic obstructive pulmonary disease versus the infection versus deep venous thrombosis. At this point, he will continue the Lovenox 40 mg twice daily with given his GFR at 46. It would be good deep venous thrombosis prophylaxis doses, but not full treatment. He will have an ultrasound tomorrow. If he has deep venous thrombosis, he will most likely be initiated on Eliquis or Xarelto. 2. Acute on chronic hypoxia. The patient is known to require oxygen. I repeated a chest x-ray today which did show some scarring, but no acute findings. 3. Morbid obesity with lymphedema and cellulitis. We are treating him with Ancef. We will repeat lab work tomorrow. 4. Type 2 diabetes. We will get him on his regular Tarceva when it arrives today and continue q.i.d. Accu-Cheks. 5. History of gout. We will continue colchicine. 6. Severe chronic obstructive pulmonary disease. We will reorder his home inhalers. He is not using the Yupelri and prefers to wait on the performance, but he will continue budesonide. 7. Chronic pain related to painful diabetic neuropathy. He has a scheduled hydrocodone. 8. Benign prostatic hyperplasia without urinary retention. He is on Flomax. 9. Essential hypertension. Discussed with the patient due to renal insufficiency. We are holding the lisinopril. 10.Acute on chronic renal failure due to diuresis. PLAN: We will continue to watch the patient's labs closely. We will give him IV Lasix, but increase to 60 mg b.i.d. today. We will continue the IV Ancef. We will continue his home BiPAP at night. Otherwise, for DVT prophylaxis, he is on Lovenox. MKA: 12/05/2018 12:19:24 MODL: 12/05/2018 12:56:48 /[id number]
[2018-12-05] MEDS: Furosemide 100 MG/10 ML SDV IV SCH (15:16)
[2018-12-06] MEDS: Budesonide 0.5 MG/2 ML Neb Susp NEB SCH (06:10)
[2018-12-06] MEDS: Arformoterol 15 MCG/2 ML Neb Soln INH SCH (06:13)
[2018-12-06] MEDS: Albuterol/Ipratropium 3.0-0.5 MG/3 ML Neb Soln NEB SCH (06:13)
[2018-12-06 07:16] LABS: ANION GAP 12.4 mmol/L (10-20)
[2018-12-06] MEDS: ceFAZolin 1 GM Vial IVPUSH SCH (07:33)
[2018-12-06] MEDS: Enoxaparin 40 MG/0.4 ML Syringe SUBCUT SCH (07:33)
[2018-12-06] MEDS: Magnesium Chloride 64 MG Tab.ER PO SCH (07:34)
[2018-12-06] MEDS: Colchicine 0.6 MG Tab PO SCH (07:34)
[2018-12-06] MEDS: Furosemide 100 MG/10 ML SDV IV SCH (07:34)
[2018-12-06] MEDS: Pramipexole 0.5 MG Tab PO SCH (07:34)
[2018-12-06] MEDS: Metoprolol Tartrate 25 MG Tab PO SCH (07:35)
[2018-12-06] MEDS: Acetaminophen/HYDROcodone 325-10 MG Tab PO PRN (07:35)
[2018-12-06] MEDS: Allopurinol 300 MG Tab PO SCH (07:38)
[2018-12-06] MEDS: TRESIBA U SQ SCH (07:39)
[2018-12-06] MEDS: FLAXSEED OIL 1000 MG PO SCH (07:39)
[2018-12-06 07:40] VITALS: BP 116/54
[2018-12-06] MEDS: IPRATROPIUM PO SCH (07:40)
[2018-12-06] MEDS ORDERED: Potassium Chloride 20 MEQ Tab.ER PO ONE (09:15)
--- NOTE | 2018-12-06 18:08 | DISCH ---
PRIMARY DISCHARGE DIAGNOSES: 1. Acute on chronic diastolic heart failure exacerbation. 2. Right leg swelling with lymphedema and likely cellulitis, improving with IV antibiotics. 3. Right leg swelling. Need to rule out deep venous thrombosis. The patient has an ultrasound arranged today at noon and we will start him on Eliquis if needed, but for now he is on Lovenox 40 mg twice daily. 4. Chronic hypoxic respiratory failure on 3 L of oxygen at rest, 4 L with activity due to heart failure and chronic obstructive pulmonary disease. 5. Diabetes type 2. Blood sugars controlled with painful neuropathy on long- term insulin. 6. History of gout. 7. Essential hypertension. We did hold lisinopril due to renal insufficiency. 8. Acute renal failure with creatinine up to 1.5 due to recent outpatient diuresis, improved down to 1.4 on discharge. 9. Benign prostatic hyperplasia without urinary retention. REASON FOR ADMISSION: On the date of admission, this 73-year-old male presented to the clinic for a 3-day recheck with no improvement in his leg swelling despite increases in his diuretic with Lasix changed to torsemide and Zaroxolyn started. His creatinine, however, did worsen from 1 to 1.5. He is known to be hypoxic, was using 2 to 3 L to stay at 88% to 90%. Chest x-ray was repeated and did not show any acute changes when compared to his previous EKG. He was afebrile, but temp did go up to 100.1. He was having a normal white count, but elevated CRP. He was initiated on IV Ancef and his pain improved, but the swelling especially in the foot did not. Overall, he had lost only about 2 pounds during his hospital stay, but had lost about 5 pounds outpatient. He feels like overall he was doing a little bit better, but he is certainly still worried about a blood clot in his leg, although he has never had one. He did take Coumadin, he believes after bilateral knee replacement many years ago. The redness never spread up his calf, it mainly was in the ankle and foot. It should be noted he also did receive some IV Lasix during his stay to help with diuresis. However, not all urine was captured in the Hat, so his in's and out's were not reliable. PHYSICAL EXAMINATION: Vital Signs: Discharge vitals include weight was 146.8 kg, temperature 98.8, pulse 72, blood pressure 116/54, respiratory rate 24, and O2 of 94% on 2 L. General: He is in no acute distress. Heart: Regular rate and rhythm. No murmur was appreciated today. Lungs: Lung sounds are decreased, but no crackles or wheezes were noted. Abdomen: Distended. Extremities: Warm and dry. He had trace edema on that left leg. He did have 3+ edema still on the right foot and 2+ at the ankle. He has scratches over his right leg, but no open sores. He did have no warmth appreciated today and overall the redness improved. Mental Status: He is alert and orientated x3. Blood sugars during his stay were all in the 120 to 170 range. He was receiving his home Tresiba. DISCHARGE PLANS AND INSTRUCTIONS: He is going home with home health. We will keep him on Keflex q.500 q.i.d. for another 5 days, but if he has a blood clot, he will stop Keflex and go on Eliquis. Home Health will provide Joshua wraps to his legs, especially if no blood clot he can even get them wrapped at the clinic today. He will resume his previous Lasix and inhalers. There were several new inhalers from the lung specialist that he had not started. He preferred to use his actual inhalers over nebulizers and these adjustments were made by pharmacy. He will keep his leg elevated. He will continue the magnesium on discharge. He did receive some IV magnesium here, was still mildly low at 1.6 on discharge. He will have repeat magnesium. Kidney function and diabetes labs around the first part of December with his followup visit with myself. He will continue on oxygen. His magnesium was 1.9 on discharge. [id number] encounter occurred with Dr. Panchal on December 06, 2018. The primary reason for home health would be for teaching and assessments. He will need teaching and assessments of new medications for diuresis. He will need monitoring of blood pressures and leg swelling for signs of infection or acute heart failure. He will need physical therapy to help with mobility and possibly lymphedema treatments in the home. His ability to leave the home is limited by his significant hypoxia. He needs to use oxygen as well as his obesity and edema, which decreases his mobility as well. He needs the assistance of another to leave his home. I will periodically review this plan of care. Greater than 30 minutes spent on the discharge process. MKA: 12/06/2018 10:11:31 MODL: 12/06/2018 18:00:44 /[id number]
== END 2018-12-06 11:15 | disposition home health service (06) | DRG 291 ==
LOC: VM.MS 14:42
PROVIDERS: ADMIT Internal Medicine; ATTEND Internal Medicine
DX: I13.0 Hypertensive heart and chronic kidney disease with heart failure and stage 1 through stage 4 chronic kidney disease, or unspecified chronic kidney disease (principal); I50.33 Acute on chronic diastolic (congestive) heart failure; N17.9 Acute kidney failure, unspecified; J96.11 Chronic respiratory failure with hypoxia; Z68.42 Body mass index [BMI] 45.0-49.9, adult; E66.01 Morbid (severe) obesity due to excess calories; E11.40 Type 2 diabetes mellitus with diabetic neuropathy, unspecified; J44.9 Chronic obstructive pulmonary disease, unspecified; N40.0 Benign prostatic hyperplasia without lower urinary tract symptoms; N18.2 Chronic kidney disease, stage 2 (mild); E11.22 Type 2 diabetes mellitus with diabetic chronic kidney disease; M10.9 Gout, unspecified; I25.10 Atherosclerotic heart disease of native coronary artery without angina pectoris; K21.9 Gastro-esophageal reflux disease without esophagitis; G89.29 Other chronic pain; E78.5 Hyperlipidemia, unspecified; G25.81 Restless legs syndrome; G47.33 Obstructive sleep apnea (adult) (pediatric); Z96.653 Presence of artificial knee joint, bilateral; Z99.81 Dependence on supplemental oxygen; Z98.49 Cataract extraction status, unspecified eye; Z79.899 Other long term (current) drug therapy; Z79.4 Long term (current) use of insulin; Z79.82 Long term (current) use of aspirin; Z88.8 Allergy status to other drugs, medicaments and biological substances; Z90.49 Acquired absence of other specified parts of digestive tract
CPT/HCPCS: 36415; 51798; 71046; 80053; 82962; 83735; 83880; 85025; 86140; 94640; 94760; A4217; A9270-GY; J0690; J1650; J1940; J3475

== ENCOUNTER 2019-05-31 20:13 | Emergency (ER) | payer MEDICARE, BC ==
[2019-05-31] MEDS ORDERED: Sodium Chloride 0.9% 10 ML Syringe FLUSH PRN (20:24)
[2019-05-31 20:31] VITALS: BP 141/72; PULSE 102
[2019-05-31] MEDS ORDERED: LORazepam 2 MG/ML SDV IVPUSH ONE (20:46)
--- NOTE | 2019-05-31 21:00 | EDM.PDOC ---
ED HPI GENERAL MEDICAL PROBLEM - General Chief Complaint: General Stated Complaint: short of breath, anxious Time Seen by Provider: 05/31/19 20:13 Source of Information: Reports: Patient History Limitations: Reports: No Limitations - History of Present Illness INITIAL COMMENTS - FREE TEXT/NARRATIVE: Pt. presents to ER with numerous complaints. His primary complaints today are that of chest pain eariler in the day, and chest pain and palpitations today. He states that tonight he feels anxious and "just doesn't feel right". He states that he has been cold, but has not been chilled or otherwise feeling ill. He has not been checking his temp. Pt. has a complex medical history and is a patient of Dr. Panchal. He has a history of severe COPD and diastolic HF and is currently on home O2 at 4 L/min. EF was 65% on last echo with trivial mitral and tricuspid regurg. He is on torsemide 60mg in the AM and 40mg in the afternoon. Normal LV function noted at that time. He has a history of morbid obesity and RANDOLPH and is on BiPap. Pt. had an NSTEMI in Mar. He was transferred from our facility to [place] and underwent stent of mid left LAD. He also has 30% stenosis to mid circumflex. He has 90% stenosis of RCA that they were unable to pass a guidewire through and subsequently no angioplasty or stent was placed. He was seen in the clinic 05/10 for cough, chest congestion and increased shortness of breath on 05/10. He was started on doxycycline. Chest x-ray showed some atelectasis at that time. No obvious infiltrate was noted, however. On arrival to ED lupe pt. denied any increased shortness of breath or current chest pain. Again, his primary complaint was that of anxious and generally not feeling well. He denies any nausea, vomiting, dark or tarry stools , nausea, vomiting, or diaphoresis. Pt. states that he has a history of RLS and takes Mirapex. He states that his RLS symptoms are worse tonight as well and associated with the anxiety. Onset: Today Onset Date: 05/31/19 Location: Reports: Lower Extremity, Left, Lower Extremity, Right, Generalized - Related Data Allergies Allergy/AdvReac Type Severity Reaction Status Date / Time metformin Allergy Intermediate Itching Verified 05/31/19 21:08 sulfamethoxazole Allergy Intermediate Rash Verified 05/31/19 21:08 [From Bactrim] trimethoprim [From Bactrim] Allergy Intermediate Rash Verified 05/31/19 21:08 atorvastatin calcium AdvReac Severe Muscle Verified 05/31/19 21:08 [From Lipitor] atrophy ezetimibe [From Zetia] AdvReac Severe muscle Verified 05/31/19 21:08 atrophy [id number] Reductase AdvReac Severe muscle Verified 05/31/19 21:08 Inhibitor atrophy streptokinase AdvReac Severe Other Verified 05/31/19 21:08 niacin AdvReac Intermediate flushing Verified 05/31/19 21:08 surgical tape Allergy Intermediate Rash Uncoded 05/31/19 21:08 Home Meds: Home Meds Acetaminophen [Tylenol] 650 mg PO Q3H PRN 09/01/15 [History] Albuterol Sulfate [Proventil Hfa] 2 puff INH Q4H PRN 09/01/15 [History] Flaxseed [Flaxseed Oil] 1,000 mg PO TID@0645,1499,209909/01/15 [History] Hydrocodone/Acetaminophen [Hydrocodon-Acetaminophn 10-325] 1 tab PO TID@0645, 1499,2099 PRN 09/01/15 [History] Metoprolol Tartrate 25 mg PO BID@644,209909/01/15 [History] Pramipexole Di-HCl [Pramipexole Dihydrochloride] 0.5 mg PO TID@0645,1500,2099 [History] Tamsulosin HCl 0.8 mg PO DAILY@209909/01/15 [History] Budesonide [Pulmicort] 0.5 mg NEB BID@644,219902/26/16 [History] Formoterol [Perforomist] 20 mcg NEB BID@644,219902/26/16 [History] Colchicine [Colcrys] 0.6 mg PO DAILY tablet 02/29/16 [Rx] Nitroglycerin [IJP: Nitroglycerin] 1 tab SL ASDIRECTED PRN 05/05/16 [History] Insulin Degludec [Tresiba Flextouch U-200] 160 unit SQ DAILY@64411/25/17 [ History] Allopurinol [Zyloprim] 300 mg PO DAILY@0645 12/04/18 [History] Aspirin [Ecotrin EC] 81 mg PO DAILY@0645 12/04/18 [History] Ipratropium [Atrovent HFA] 2 puff PO QID 12/04/18 [History] Magnesium Chloride [Mag-64] 64 mg PO BID@0645,2100 12/04/18 [History] Albuterol/Ipratropium [DuoNeb 3.0-0.5 MG/3 ML] 3 ml INH QID 05/31/19 [History] Amoxicillin 4 cap PO ASDIRECTED PRN 05/31/19 [History] Desonide 15 gm TP BID 05/31/19 [History] Docusate Sodium [Colace] 1 - 2 cap PO ASDIRECTED PRN 05/31/19 [History] Ketoconazole [Nizoral] 120 ml TP ASDIRECTED 05/31/19 [History] Polyethylene Glycol 3350 [MiraLAX] 17 gm PO DAILY PRN 05/31/19 [History] Potassium Chloride 10 meq PO DAILY 05/31/19 [History] Ticagrelor [Brilinta] 90 mg PO BID 05/31/19 [History] Torsemide 20 mg PO ASDIRECTED 05/31/19 [History] Triamcinolone Acetonide [Kenalog 0.1% Crm] 15 gm TOP BID 05/31/19 [History] Past Medical History HEENT History: Reports: Cataract, Hard of Hearing Cardiovascular History: Reports: Angina, CAD, Heart Failure, High Cholesterol, Hypertension, [place], PTCA, SOB on Exertion, Stents Other Cardiovascular History: stable angina, edema Respiratory History: Reports: COPD, Sleep Apnea Other Respiratory History: emphysema, sleep-related hypoventilation; on BIPAP Gastrointestinal History: Reports: Other (See Below) Other Gastrointestinal History: Recent weight loss Genitourinary History: Reports: Chronic Renal Insuffiency, Prostate Disorder, Renal Disease Other Genitourinary History: CKD stage 2 GFR 60-89ml/min Musculoskeletal History: Reports: Back Pain, Chronic Other Musculoskeletal History: RLS, pain in joint (lower leg) Neurological History: Reports: Neuropathy, Peripheral Psychiatric History: Reports: None Endocrine/Metabolic History: Reports: Diabetes, Type II, Obesity/BMI 30+ Hematologic History: Reports: None Immunologic History: Reports: None Oncologic (Cancer) History: Reports: None Dermatologic History: Reports: Venous Stasis Dermatitis Other Dermatologic History: thin skin, has one small open site near right forarm IV site - Past Surgical History Head Surgeries/Procedures: Reports: None HEENT Surgical History: Reports: Cataract Surgery Cardiovascular Surgical History: Reports: Carotid Stents, Coronary Artery Stent (Stent X 2; one in 2008; one in 2003; balloon angioplasty 1987) GI Surgical History: Reports: Cholecystectomy, Colonoscopy, Hernia, Inguinal Musculoskeletal Surgical History: Reports: Joint Replacement, Knee Replacement ( Bilateral) Oncologic Surgical History: Reports: None Social & Family History - Family History Family Medical History: Noncontributory Cardiac: Reports: Angina, Heart Failure, [place] (maternal grandfather had WA age 65) , SOB on Exertion, Stent Respiratory: Reports: COPD, Sleep Apnea GI: Reports: Cholelithiasis : Reports: Other (See Below) Musculoskeletal: Reports: Back pain, Chronic, Osteoarthritis Neurological: Reports: Neuropathy, Diabetic Dermatologic: Reports: Other (See Below) (chronic venous stasis with dermatitis) - Caffeine Use Caffeine Use: Reports: Coffee ED ROS GENERAL - Review of Systems Review Of Systems: See Below Constitutional: Reports: No Symptoms HEENT: Reports: No Symptoms Respiratory: Reports: Shortness of Breath. Denies: Cough, Sputum Cardiovascular: Reports: Chest Pain, Dyspnea on Exertion, Edema, Palpitations ( yesterday). Denies: Lightheadedness Endocrine: Reports: No Symptoms GI/Abdominal: Reports: No Symptoms : Reports: No Symptoms Musculoskeletal: Reports: No Symptoms Skin: Reports: No Symptoms Neurological: Reports: No Symptoms Psychiatric: Reports: No Symptoms Hematologic/Lymphatic: Reports: No Symptoms Immunologic: Reports: No Symptoms ED EXAM, GENERAL - Physical Exam Exam: See Below Exam Limited By: No Limitations General Appearance: Alert, WD/WN, Anxious, Mild Distress Eye Exam: Bilateral Eye: EOMI, Normal Fundi, Normal Inspection Head: Atraumatic, Normocephalic Neck: Normal Inspection, Supple, Non-Tender Respiratory/Chest: No Accessory Muscle Use, Chest Non-Tender, Respiratory Distress, Decreased Breath Sounds Cardiovascular: Regular Rate, Rhythm, No Gallop, No JVD, No Murmur, No Rub Peripheral Pulses: 4+: Radial (R) GI/Abdominal: Soft, No Distention, No Mass (Male) Exam: Deferred Rectal (Males) Exam: Deferred Back Exam: Normal Inspection, Full Range of Motion Extremities: Non-Tender, Other (edema/lymphedema to extremities R>L). No: Increased Warmth Neurological: Alert, Oriented, CN II-XII Intact, Normal Cognition Psychiatric: Normal Affect, Normal Mood Skin Exam: Warm, Dry, Intact, No Rash, Pallor Lymphatic: No Adenopathy Course - Vital Signs Last Recorded V/S: Last Vital Signs Temp 37.1 C 05/31/19 20:29 Pulse 102 H 05/31/19 20:29 Resp 21 H 05/31/19 20:29 BP 141/72 H 05/31/19 20:29 Pulse Ox 92 L 05/31/19 20:29 - Orders/Labs/Meds Orders: Active Orders 24 hr Category Date Time Status EKG Documentation Completion [RC] STAT Care 05/31/19 20:25 Active Oxygen Therapy [RC] PRN Care 05/31/19 20:25 Active CULTURE BLOOD [BC] Stat Lab 05/31/19 20:47 Received CULTURE BLOOD [BC] Stat Lab 05/31/19 20:52 Received Sodium Chloride 0.9% [Saline Flush] Med 05/31/19 20:24 Active 10 ml FLUSH ASDIRECTED PRN Blood Culture x2 Reflex Set [OM.PC] Stat Oth 05/31/19 20:25 Ordered Peripheral IV Insertion Adult [OM.PC] Routine Oth 05/31/19 20:25 Ordered Medication Orders Sodium Chloride (Saline Flush) 10 ml FLUSH ASDIRECTED PRN PRN Reason: Keep Vein Open Labs: Laboratory Tests 05/31/19 05/31/19 05/31/19 Range/Units 20:52 20:52 20:52 WBC 8.2 (4.0-10.0) x10^3/uL RBC 4.53 (4.5-6.0) x10^6/uL Hgb 12.8 L (14.0-18.0) g/dL Hct 39.9 L (40.0-52.0) % MCV 88.1 (78.0-93.0) fL MCH 28.3 (26.0-32.0) pg MCHC 32.1 (32.0-36.0) g/dL RDW Coeff of Denise 16.6 H (10.0-15.0) % Plt Count 136 (130-400) x10^3/uL Neut % (Auto) 74.7 (50.0-80.0) % Lymph % (Auto) 12.4 L (25.0-50.0) % Juab % (Auto) 10.3 (2.0-11.0) % Eos % (Auto) 2.1 (0.0-4.0) % Baso % (Auto) 0.5 (0.2-1.2) % PT 12.4 (10.0-12.8) SEC INR 1.1 L (2.0-3.5) Sodium 143 (136-145) mmol/L Potassium 3.1 L (3.5-5.1) mmol/L Chloride 100 (98-107) mmol/L Carbon Dioxide 30 (21-32) mmol/L Anion Gap 16.1 (10-20) mmol/L BUN 19 H (7-18) mg/dL Creatinine 1.0 (0.70-1.30) mg/dL Est Cr Clr Drug Dosing TNP Estimated GFR (MDRD) > 60 Glucose 219 H (74-106) mg/dL Lactic Acid (0.4-2.0) mmol/L Calcium 9.2 (8.5-10.1) mg/dL Corrected Calcium 9.60 (8.5-10.1) mg/dL Phosphorus 2.2 L (2.6-4.7) mg/dL Magnesium 1.2 L (1.8-2.4) mg/dL Total Bilirubin 1.4 H (0.2-1.0) mg/dL AST 41 H (15-37) U/L ALT 28 (16-63) U/L Alkaline Phosphatase 66 (46-116) U/L Troponin I 0.037 (<=0.056) ng/mL C-Reactive Protein 1.4 H (<=0.9) mg/dL NT-Pro-B Natriuret Pep 182 H (<=125) pg/mL Total Protein 7.7 (6.4-8.2) g/dL Albumin 3.5 (3.4-5.0) g/dL Globulin 4.2 Albumin/Globulin Ratio 0.83 TSH, Ultra Sensitive 1.699 (0.358-3.74) uIU/mL 05/31/19 Range/Units 20:52 WBC (4.0-10.0) x10^3/uL RBC (4.5-6.0) x10^6/uL Hgb (14.0-18.0) g/dL Hct (40.0-52.0) % MCV (78.0-93.0) fL MCH (26.0-32.0) pg MCHC (32.0-36.0) g/dL RDW Coeff of Denise (10.0-15.0) % Plt Count (130-400) x10^3/uL Neut % (Auto) (50.0-80.0) % Lymph % (Auto) (25.0-50.0) % Juab % (Auto) (2.0-11.0) % Eos % (Auto) (0.0-4.0) % Baso % (Auto) (0.2-1.2) % PT (10.0-12.8) SEC INR (2.0-3.5) Sodium (136-145) mmol/L Potassium (3.5-5.1) mmol/L Chloride (98-107) mmol/L Carbon Dioxide (21-32) mmol/L Anion Gap (10-20) mmol/L BUN (7-18) mg/dL Creatinine (0.70-1.30) mg/dL Est Cr Clr Drug Dosing Estimated GFR (MDRD) Glucose (74-106) mg/dL Lactic Acid 2.0 (0.4-2.0) mmol/L Calcium (8.5-10.1) mg/dL Corrected Calcium (8.5-10.1) mg/dL Phosphorus (2.6-4.7) mg/dL Magnesium (1.8-2.4) mg/dL Total Bilirubin (0.2-1.0) mg/dL AST (15-37) U/L ALT (16-63) U/L Alkaline Phosphatase (46-116) U/L Troponin I (<=0.056) ng/mL C-Reactive Protein (<=0.9) mg/dL NT-Pro-B Natriuret Pep (<=125) pg/mL Total Protein (6.4-8.2) g/dL Albumin (3.4-5.0) g/dL Globulin Albumin/Globulin Ratio TSH, Ultra Sensitive (0.358-3.74) uIU/mL Meds: Medications Generic Name Dose Route Start Last Admin Trade Name Guanaco PRN Reason Stop Dose Admin Sodium Chloride 10 ml 05/31/19 20:24 Saline Flush FLUSH ASDIRECTED PRN Keep Vein Open Discontinued Medications Generic Name Dose Route Start Last Admin Trade Name Guanaco PRN Reason Stop Dose Admin Lorazepam 1 mg 05/31/19 20:46 05/31/19 21:04 Ativan IVPUSH 05/31/19 20:47 1 mg STAT ONE Administration Lorazepam 2 packet 05/31/19 21:44 05/31/19 21:57 Take Home: Lorazepam 0.5 Mg, 2 Tab Pack PO 05/31/19 21:45 2 packet ONETIME ONE Administration Departure - Departure Time of Disposition: 22:00 Disposition: Home, Self-Care 01 Condition: Good Clinical Impression: Anxiety, RLS (restless legs syndrome) - Discharge Information Instructions: Generalized Anxiety Disorder, Adult, Lorazepam tablets Referrals: Janell Panchal DO [Primary Care Provider] - Forms: ED Department Discharge Additional Instructions: Lorazepam 0.5mg 1-2 tablets every 4-6 hours as needed for anxiety Recheck in the clinic in 7-10 days, sooner if shortness of breath, chest pain, palpitations, or lightheadedness. Sepsis Event Note - Evaluation Sepsis Screening Result: No Definite Risk - Focused Exam Vital Signs: Vital Signs Temp Pulse Resp BP Pulse Ox 05/31/19 20:29 37.1 C 102 H 21 H 141/72 H 92 L Date Exam was Performed: 05/31/19 Time Exam was Performed: 22:20 - My Orders Last 24 Hours: My Active Orders 05/31/19 20:24 Sodium Chloride 0.9% [Saline Flush] 10 ml FLUSH ASDIRECTED PRN 05/31/19 20:25 EKG Documentation Completion [RC] STAT Oxygen Therapy [RC] PRN Blood Culture x2 Reflex Set [OM.PC] Stat Peripheral IV Insertion Adult [OM.PC] Routine 05/31/19 20:47 CULTURE BLOOD [BC] Stat 05/31/19 20:52 CULTURE BLOOD [BC] Stat - Assessment/Plan Last 24 Hours: My Active Orders 05/31/19 20:24 Sodium Chloride 0.9% [Saline Flush] 10 ml FLUSH ASDIRECTED PRN 05/31/19 20:25 EKG Documentation Completion [RC] STAT Oxygen Therapy [RC] PRN Blood Culture x2 Reflex Set [OM.PC] Stat Peripheral IV Insertion Adult [OM.PC] Routine 05/31/19 20:47 CULTURE BLOOD [BC] Stat 05/31/19 20:52 CULTURE BLOOD [BC] Stat Plan: All of his labs were within normal limits. EKG was unchanged, as was his chest x -ray. He was given ativan 1 mg IV which he states did help with his symptoms. H was prescribed ativan 0.5mg with instructions to take 1-2 tabs every 4-6 hours as needed for acute anxiety. Return to ER if he has any chest pain, shortness of breath, lightheadedness, or palpitations.
--- NOTE | 2019-05-31 21:03 | CR ---
[id number] RAD/RAD Chest PA And Lateral EXAM: FRONTAL AND LATERAL CHEST INDICATION: Syncope and bradycardia. COMPARISON: April 15, 2019. DISCUSSION: Stable cardiomegaly with mild central vascular congestion. Stable bibasilar scarring. No acute infiltrates are identified. Mild hyperinflation suggests underlying chronic obstructive pulmonary disease. IMPRESSION: 1. Stable cardiomegaly with mild central vascular congestion. Alfred Feliciano MD 05/31/19 1464 Thank you for allowing us to participate in the care of your patient.
[2019-05-31 21:33] LABS: CHLORIDE,CL 100 mmol/L (98-107); SODIUM,NA 143 mmol/L (136-145)
[2019-05-31 21:34] LABS: ANION GAP 16.1 mmol/L (10-20)
[2019-05-31] MEDS ORDERED: Take Home: LORazepam 0.5 MG Tab, 2 Tab Pack PO ONE (21:44)
== END 2019-05-31 22:10 | disposition home or self-care (01) ==
LOC: VM.ED 20:13
DX: F41.9 Anxiety disorder, unspecified (principal); G25.81 Restless legs syndrome; J43.9 Emphysema, unspecified; E11.22 Type 2 diabetes mellitus with diabetic chronic kidney disease; I13.0 Hypertensive heart and chronic kidney disease with heart failure and stage 1 through stage 4 chronic kidney disease, or unspecified chronic kidney disease; N18.2 Chronic kidney disease, stage 2 (mild); E11.40 Type 2 diabetes mellitus with diabetic neuropathy, unspecified; E66.01 Morbid (severe) obesity due to excess calories; G47.33 Obstructive sleep apnea (adult) (pediatric); I25.2 Old myocardial infarction; E11.36 Type 2 diabetes mellitus with diabetic cataract; H26.9 Unspecified cataract; I25.10 Atherosclerotic heart disease of native coronary artery without angina pectoris; I50.30 Unspecified diastolic (congestive) heart failure; Z95.5 Presence of coronary angioplasty implant and graft; Z88.8 Allergy status to other drugs, medicaments and biological substances; Z88.1 Allergy status to other antibiotic agents; Z91.048 Other nonmedicinal substance allergy status; Z79.82 Long term (current) use of aspirin; Z79.899 Other long term (current) drug therapy; Z79.51 Long term (current) use of inhaled steroids; Z79.4 Long term (current) use of insulin; Z99.81 Dependence on supplemental oxygen
CPT/HCPCS: 36415; 71046; 80053; 83605; 83735; 83880; 84100; 84443; 84484; 85025; 85610; 86140; 87040; 93005; 94760; 96374; 99284; 99285; A9270; J2060

== ENCOUNTER 2019-07-12 15:09 | Inpatient (IN) | payer MEDICARE, BC ==
[2019-07-12] MEDS ORDERED: Furosemide 40 MG/4 ML VIAL IV ONE ×2 (16:48→20:32)
[2019-07-12] MEDS ORDERED: Polyethylene Glycol 3350 Powder 17 GM Packet PO PRN (17:24)
[2019-07-12] MEDS ORDERED: Albuterol HFA 18 Gm Inhaler INH PRN (17:24)
[2019-07-12] MEDS ORDERED: Nitroglycerin 0.4 MG Tab.SL SL PRN (17:24)
[2019-07-12] MEDS ORDERED: Acetaminophen 325 MG Tab PO PRN (17:24)
[2019-07-12] MEDS: Acetaminophen/HYDROcodone 325-10 MG Tab PO SCH ×2 (18:40→20:45)
[2019-07-12] MEDS ORDERED: Acetaminophen/HYDROcodone 325-10 MG Tab PO PRN ×2 (19:35→21:00)
[2019-07-12] MEDS ORDERED: DESONIDE 15 GM TP SCH (20:00)
[2019-07-12] MEDS: Tamsulosin 0.4 MG Cap.ER PO SCH (20:40)
[2019-07-12] MEDS: Ticagrelor 90 MG Tab PO SCH (20:40)
[2019-07-12] MEDS: Magnesium Chloride 64 MG Tab.ER PO SCH (20:40)
[2019-07-12] MEDS: Albuterol/Ipratropium 3.0-0.5 MG/3 ML Neb Soln INH SCH (20:40)
[2019-07-12] MEDS: Metoprolol Tartrate 25 MG Tab PO SCH (20:47)
[2019-07-12] MEDS: Pramipexole 0.5 MG Tab PO SCH (20:47)
[2019-07-12] MEDS: Budesonide 0.5 MG/2 ML Neb Susp NEB SCH (21:26)
[2019-07-12] MEDS: Sodium Chloride 0.9% 10 ML Syringe FLUSH PRN (21:26)
[2019-07-12] MEDS: Arformoterol 15 MCG/2 ML Neb Soln INH SCH (21:26)
[2019-07-12] MEDS: Ciprofloxacin in D5W 200 MG in Premix Bag 1 BAG IV SCH ×2 (21:30)
[2019-07-12] MEDS: LORazepam 0.5 MG Tab PO PRN (21:32)
--- NOTE | 2019-07-13 03:38 | HP ---
CHIEF COMPLAINT: Left leg pain and swelling. HISTORY OF PRESENT ILLNESS: Started a couple of days ago, but he has had an ulcer to that left plantar foot for which he saw Podiatry today. They felt it looked good and did not need any surgery. He saw the tafe lecturer back on 06/14 for the full-thickness ulceration beneath the 5th metatarsal in an area they had been treating for a wart with Compound W and it had opened up. There is no drainage. He does have peripheral neuropathy. He takes hydrocodone for that 3 times a day. He was unable to cut down to a half dose. He has had some shortness of breath. He has known COPD and coronary artery disease and did have a cardiac event, non-ST elevation AL back on 04/18, and got a successful drug- eluting stent to the mid LAD at that time. He is not having any chest pain. He is using Ativan in the morning, really helps. He feels he needs more of that. He has been quite anxious about his health. He has been having some epigastric pain, not any fever or chills that he can feel, but just really feeling under the weather. When he arrived at Podiatry Clinic, his temp was 100.6. They have been treating the leg and foot with Epsom salts 2 times a day. He was seen on 07/04 for a sinus infection. He was treated with antibiotic, Omnicef 300 twice a day for 5 days, finished on the . It did not help the leg at all, but his leg was not that bad when he was taking those antibiotics. In the clinic, he came in, had his routine lab work before even seeing me. His white count was actually normal. I added on a sed rate and that was elevated up to 36. His diabetes control is okay at 7.7. His kidney function was normal at 1.17. He was recommended for admission because of increasing edema. He also had a proBNP test ran and that was normal and his troponin was normal. Chest x-ray did not show any pneumonia or pulmonary congestion. EKG is pending at the time of this dictation. ALLERGIES: Include [place], Bactrim, rash; Lipitor, myalgias; metformin, itching; niacin, arrhythmia; statins, leg pain; streptokinase, overdose of some sort; surgical tape, skin cares; Zetia myalgias. MEDICATIONS: His medication list is reviewed. He has currently hydrocodone 10 mg 3 times a day, colchicine 0.6 daily, Lopressor 25 mg twice daily, Yupelri 175 daily, desonide cream, potassium 20 mEq daily, Ativan 0.5 at bedtime as needed, MiraLAX as needed, Colace 100 to 200 as needed for constipation, Brilinta 90 twice daily, Mirapex 0.5 three times a day for restless legs, Demadex 60 in the morning, in the afternoon, Flomax 0.8 daily, Pulmicort nebs twice daily, DuoNebs 4 times a day, Perforomist 1 neb twice a day, magnesium 64 twice a day, Tresiba 160 daily, allopurinol 300, nitro as needed, Atrovent, Proventil as needed, amoxicillin with dental work, aspirin 81 mg daily, flaxseed, and Tylenol. PAST MEDICAL HISTORY: Includes BPH; gastritis; chronic kidney disease stage 2, controlled; diabetes with diabetic neuropathy, on long-term insulin; COPD, severe on chronic oxygen; coronary artery disease since age 43. Most recent intervention is a non-ST elevation AL and a stent to the LAD in 03/2019, diastolic heart failure, on Lasix 80 b.i.d. fci. His EF was 65% back in 03/2019. Obstructive sleep apnea on BiPAP, morbid obesity, history of gout, hyperlipidemia, painful diabetic neuropathy, restless legs syndrome, GERD, essential hypertension, possible adjustment disorder due to health problems. SURGICAL HISTORY: He has had a cholecystectomy. He has had hernia repair. He has had a cataract surgery. He has had bilateral knee replacements. FAMILY HISTORY: Both parents are . His mother had COPD. SOCIAL HISTORY: Alcohol use on occasion like 2 drinks per week. He is a nonsmoker, but did smoke in the past, quit like in 1987. Retired [employer]. He is . REVIEW OF SYSTEMS: General: No recent weight changes were noted. He has not felt fever or chills, but he has overall not felt well. He has felt weak. HEENT: No sore throat. Cardiac: No chest pain, no palpitations, but he has had shortness of breath. He has been sleeping in the chair. Respiratory: He has been short of breath. No increased cough. No sputum production. Abdomen: No new nausea, vomiting, or diarrhea. Skin: He has had a generalized rash. He was supposed to be seen again by Dermatology. He has even had it biopsied. He has been on multiple different steroid, bacterial, and fungal creams. He just has a lot itching all over his legs and his arms. Mental Status: He has not had confusion, but he has been a little slowed. He has been more anxious. He is using Ativan in the morning. Otherwise, all systems reviewed and found to be negative unless otherwise stated. PHYSICAL EXAMINATION: Vital signs: His blood pressure on admission to the hospital was 137/60, his pulse 92, his weight 148.7 kg, temp 100.6, O2 saturation 93% on 3 L of oxygen. General: He is in no acute distress. Heart: Regular rate and rhythm. Tones are distant and a murmur is appreciated. Lungs: Sounds are decreased, but no crackles or wheezes noted. Musculoskeletal: He has 2+ edema over both ankles. He has no redness or warmth on that right leg, but he has excoriations with scabs and redness extending up to the upper calf area, but not to his knee. He has a knee replacement scar seen. He has no joint tenderness or effusion. He has some tenderness over the calf area and redness with lymphedema changes. The foot is examined, and he also has a 1.5 cm circular clean wound noted. Actually, was reported to be just a wart on 05/30 when he saw Dermatology. It was not actively treated with any cryotherapy by them due to these concerns for the wound. Psychiatric: He has normal mood, affect. He is answering questions appropriately. LABORATORY WORK: Again, some of which was reported in the HPI, but a normal troponin, normal proBNP, normal white count, hemoglobin mildly low at 11.5. Ferritin pending. A1c again 7.7, magnesium 1.6, creatinine 1.17, glucose 237, potassium 3.9. The rest of the electrolytes were within normal range. ESR 36. Chest x-ray: No infiltrates. EKG pending. ASSESSMENT: 1. Diabetic foot ulcer with left leg cellulitis. I would call this a mild-to- moderate infection, but due to severe lymphedema and recent outpatient antibiotic use, the patient will be admitted for IV antibiotics. We did do a swab for culture on his wound. I am not sure of the utility of this given the fact the wound was so clean, but you know we just want to check for methicillin-resistant Staphylococcus aureus or not. I will put him on vancomycin and Zosyn. He had blood cultures. Lactic acid was ordered and was normal. I do not feel that he is acutely septic, so it will not be repeated. 2. Morbid obesity with lymphedema. His BNP was normal. I do not feel this is heart failure, but he does need to be diuresed. I will place him on 40 mg of IV Lasix now. If he is unable to void, we will place a catheter, and if blood pressures are okay, he may even get redosed tonight. Otherwise, plan to schedule in the morning 40 to 80 mg up to twice a day to ensure good diuresis. 3. Morbid obesity. 4. Obstructive sleep apnea with BiPAP. The patient will not have his home unit tonight. We will try to use our BiPAP unit for him. If not, he will use oxygen overnight and sleep in the chair. It sounds like he is doing this at home anyway. 5. Chronic obstructive pulmonary disease, severe. We will continue his home medications and nebulizers and oxygen. 6. Diabetes. We will do q.i.d. Accu-Cheks. We will continue his home insulin dosing. 7. Painful diabetic neuropathy. We will keep him on his hydrocodone. I also will allow some p.r.n. dosing. 8. Known coronary artery disease. First troponin was negative. He is not having any angina. His main issue right now is the leg, but we will monitor him with telemetry and pulse oximetry and see how he does overnight. 9. Gastroesophageal reflux disease and history of gastritis. We will continue his home medications. 10.Chronic kidney disease 2. We will do close monitoring of the kidneys during diuresis. PLAN: At this point, the patient is admitted for acute cares for IV antibiotics with vancomycin and Zosyn and IV diuresis. Anticipate he will need at least a 2 night acute stay. Local wound cares just like an Optifoam or Mepilex. I am going to hold off on any further Epson salt soaks for now. MKA: 07/12/2019 20:33:04 MODL: 07/13/2019 03:34:09 /[id number]
[2019-07-13] MEDS ORDERED: Aspirin 81 MG Tab.EC PO SCH (06:45)
[2019-07-13] MEDS: Acetaminophen/HYDROcodone 325-10 MG Tab PO SCH ×3 (06:45→20:46)
[2019-07-13] MEDS: Pramipexole 0.5 MG Tab PO SCH ×3 (06:45→20:45)
[2019-07-13] MEDS: Magnesium Chloride 64 MG Tab.ER PO SCH ×2 (06:45→20:48)
[2019-07-13] MEDS: Metoprolol Tartrate 25 MG Tab PO SCH ×2 (07:01→20:47)
[2019-07-13] MEDS: Allopurinol 300 MG Tab PO SCH (07:01)
[2019-07-13] MEDS: Insulin Glarg,Human.Rec.Analog 100 Unit/ML SUBCUT SCH (07:10)
[2019-07-13] MEDS: Arformoterol 15 MCG/2 ML Neb Soln INH SCH ×3 (07:26→21:02)
[2019-07-13] MEDS: Budesonide 0.5 MG/2 ML Neb Susp NEB SCH ×3 (07:26→21:02)
[2019-07-13] MEDS: Albuterol/Ipratropium 3.0-0.5 MG/3 ML Neb Soln INH SCH (07:27)
[2019-07-13 07:40] LABS: ANION GAP 13.5 mmol/L (10-20)
[2019-07-13] MEDS ORDERED: Potassium Chloride 10 MEQ Tab.ER PO SCH (08:00)
[2019-07-13] MEDS ORDERED: Albuterol/Ipratropium 3.0-0.5 MG/3 ML Neb Soln INH PRN (08:09)
[2019-07-13] MEDS: Ticagrelor 90 MG Tab PO SCH ×2 (08:14→20:51)
[2019-07-13] MEDS: Colchicine 0.6 MG Tab PO SCH (08:15)
[2019-07-13] MEDS ORDERED: [UNRECOGNIZED DRUG - OTHER] TOP SCH (08:45)
[2019-07-13] MEDS ORDERED: CLOBETASOL TOP SCH (08:45)
[2019-07-13] MEDS: Potassium Chloride 10 MEQ Tab.ER PO SCH ×2 (09:09→17:53)
[2019-07-13] MEDS: Furosemide 100 MG/10 ML SDV IV SCH ×2 (09:10→16:49)
[2019-07-13] MEDS: LORazepam 0.5 MG Tab PO PRN ×2 (09:10→22:27)
[2019-07-13] MEDS: Sodium Chloride 0.9% 10 ML Syringe FLUSH PRN (09:11)
[2019-07-13] MEDS: Ciprofloxacin in D5W 200 MG in Premix Bag 1 BAG IV SCH ×4 (09:28→21:19)
--- NOTE | 2019-07-13 11:34 | PN ---
Progress Note for DIANE ANDUJAR Date: 07/13/2019 Room #: VM.203 SUBJECTIVE: This is hospital day #2 on a 74-year-old admitted from the clinic with a left lower extremity cellulitis with known underlying lymphedema. The patient states the pain is not any worse today. He states he never had a problem with his breathing. It is about the same. He has not had any increased coughing. He was unable to tolerate our CPAP last night so slept with oxygen. His will be bringing in his BiPAP today. His ferritin was checked through the clinic yesterday as he was in for a routine followup. It was low at 25. He has been having a lot a restless legs. He has been having a lot of itching on his skin and dermatitis. In fact, he is supposed to follow up with Dermatology but had to reschedule. He has tried many creams. He thinks Desonide may be was helping, but then it sort of burned because it was an ointment instead of a cream. He has had a biopsy. He had a wart on his foot that he was putting like Compound W on, opened up, likely has like a diabetic foot ulcer there now and that might have started the cellulitis versus the excoriations on his legs from the rash. The redness today looks to be receding. He has been afebrile overnight. He had 1.6 L of urine output. OBJECTIVE: Vital Signs: This morning, his temperature is 97.7, his T-max was 100.6 at 3:40 yesterday afternoon; his blood pressure is 126/56; respiratory rate is 18; O2 is 92% on 4 L; and pulse is 85. He has no events on telemetry. GENERAL: He is in no acute distress. HEART: Regular rate and rhythm. S1, S2 with a murmur. Lungs: Lung sounds are decreased slightly but no crackles, no wheezes. Abdomen: Has positive bowel sounds. It is distended. Extremities: Warm and dry. He has still 1+ edema in both ankles with lymphedema changes over that left leg but no open ulcers. The foot is not examined today. It is clean, dry, and intact. No bone exposed yesterday when it is examined. He does have a wrap in place. He has some excoriations on his legs. The redness is below the knee and does not appear to be progressing. Mental Status: He is alert. He is orientated x3. LABORATORY DATA: Lab work does show white count normal at 7.5, hemoglobin 11.7, and platelets 156. Sodium 141, potassium 3.5, chloride 102, bicarbonate 23, BUN 22, creatinine 1.2, glucose 130, calcium 8.6, bilirubin up to 2.1, AST up to 46, ALT 31, and albumin normal at 3.5. ASSESSMENT: 1. Left lower extremity cellulitis, seems to be improving on intravenous vancomycin and Cipro day 2. Cultures were taken. We will hopefully be able to deescalate his antibiotics soon. 2. Diabetic foot ulcer. 3. Diabetes with painful neuropathy, on long-term insulin. 4. Morbid obesity with lymphedema. 5. Obstructive sleep apnea, on BiPAP. 6. Severe chronic obstructive pulmonary disease, stable without exacerbation. 7. Known coronary artery disease with stenting last fall. 8. Possible chronic diastolic heart failure EF 65 %. His proBNP was normal. He is still being diuresed due to leg swelling and lymphedema. 9. Gastroesophageal reflux disease with history of gastritis. 10.Iron-deficiency anemia. I am going to start him on some oral iron today. 11.Chronic kidney disease stage 2. His renal function is stable with diuresis. His potassium is normal but low normal, so I am going to add some increased potassium today. 12.He also had elevated liver testing with bilirubin. We will repeat tomorrow morning. The patient to continue acute cares. 13. BPH PLAN: The patient will continue on acute cares. He got 80 mg IV Lasix yesterday. He has a catheter in place due to difficulty with passing urine and he does have a history of BPH. Therefore, I will continue it for 1 more day, place him on 80 mg IV twice daily. Recheck renal function tomorrow. Monitor blood pressures. We can stop telemetry. He will continue using the incentive spirometry start a flutter valve. Continue local wound cares with mix of Eucerin and clobetasol cream applied to his rash. We will Joshua wrap the leg to help with swelling. Await culture results. We will get PT and OT involved MKA: 07/13/2019 10:42:00 MODL: 07/13/2019 11:27:01 /[id number] MTDD
[2019-07-13] MEDS ORDERED: Albuterol 0.083% 2.5 MG/3 ML Neb Soln NEB PRN (11:56)
[2019-07-13] MEDS: Ferrous Sulfate 325 MG Tab PO SCH (12:20)
[2019-07-13] MEDS: Loratadine 10 MG Tab PO SCH (14:59)
[2019-07-13] MEDS: busPIRone 5 MG Tab PO SCH ×2 (14:59→20:45)
[2019-07-13] MEDS ORDERED: Sodium Chloride 0.9% 250 ML ONE (17:51)
[2019-07-13] MEDS: Tamsulosin 0.4 MG Cap.ER PO SCH (20:48)
[2019-07-13] MEDS: CLOBETASOL TOP SCH ×2 (20:51)
[2019-07-13] MEDS: [UNRECOGNIZED DRUG - OTHER] TOP SCH ×2 (20:51)
[2019-07-13] MEDS: MINERAL OIL TOP SCH ×2 (20:51)
[2019-07-13] MEDS: PETROLATUM TOP SCH ×2 (20:51)
[2019-07-13] MEDS: YUPELRI 175 MCG/3 ML NEB SCH (20:52)
[2019-07-14] MEDS: Pramipexole 0.5 MG Tab PO SCH ×3 (06:24→21:04)
[2019-07-14] MEDS: Allopurinol 300 MG Tab PO SCH (06:24)
[2019-07-14] MEDS: Magnesium Chloride 64 MG Tab.ER PO SCH ×3 (06:24→21:04)
[2019-07-14] MEDS: Acetaminophen/HYDROcodone 325-10 MG Tab PO SCH ×3 (06:25→21:04)
[2019-07-14] MEDS: Metoprolol Tartrate 25 MG Tab PO SCH ×2 (06:26→21:05)
[2019-07-14] MEDS: Insulin Glarg,Human.Rec.Analog 100 Unit/ML SUBCUT SCH (06:28)
[2019-07-14] MEDS: Arformoterol 15 MCG/2 ML Neb Soln INH SCH ×2 (07:03→21:03)
[2019-07-14] MEDS: Budesonide 0.5 MG/2 ML Neb Susp NEB SCH ×2 (07:03→21:03)
[2019-07-14] MEDS: Ciprofloxacin in D5W 200 MG in Premix Bag 1 BAG IV SCH ×4 (08:14→19:02)
[2019-07-14] MEDS: Furosemide 100 MG/10 ML SDV IV SCH ×2 (08:24→15:20)
[2019-07-14 08:26] LABS: ANION GAP 13.6 mmol/L (10-20)
[2019-07-14] MEDS: Ticagrelor 90 MG Tab PO SCH ×2 (08:28→21:04)
[2019-07-14] MEDS: busPIRone 5 MG Tab PO SCH ×2 (08:28→21:04)
[2019-07-14] MEDS: Potassium Chloride 10 MEQ Tab.ER PO SCH ×2 (08:28→18:55)
[2019-07-14] MEDS: Colchicine 0.6 MG Tab PO SCH (08:28)
[2019-07-14] MEDS: LORazepam 0.5 MG Tab PO PRN (08:28)
[2019-07-14] MEDS: Ferrous Sulfate 325 MG Tab PO SCH (08:28)
[2019-07-14] MEDS: Loratadine 10 MG Tab PO SCH (08:28)
[2019-07-14] MEDS: CLOBETASOL TOP SCH ×4 (08:29→21:03)
[2019-07-14] MEDS: PETROLATUM TOP SCH ×4 (08:29→21:03)
[2019-07-14] MEDS: [UNRECOGNIZED DRUG - OTHER] TOP SCH ×4 (08:29→21:03)
[2019-07-14] MEDS: MINERAL OIL TOP SCH ×4 (08:29→21:03)
--- NOTE | 2019-07-14 13:38 | PN ---
Progress Note for DIANE ANDUJAR Date: 07/14/2019 Room #: VM.203 SUBJECTIVE: This is hospital day #3 on a 74-year-old admitted with lymphedema and left lower extremity cellulitis. The patient tells me he did not get his leg wrapped yesterday. Nurses said that he was seen by PT. They talked about doing the lymphedema treatments once his infection healed. The patient was not sure who told him about those treatments, that maybe we had them in the clinic. He is upset that he has not gotten his legs soaked. The bus and sys integration senior manager told him he should continue that, but it was not in his note. He has now been afebrile since admission. He does not feel like the pain or swelling have really improved much. He has been on vancomycin and Cipro. He is down 3.2 L of fluid. He is tolerating his diet. His blood sugars are all under good control. He has not had any shortness of breath or chest pain. Yesterday, his and him met with the pharmacist. He has been taking Ativan for anxiety. He definitely does not want to take a drug for depression. It was discussed to possibly start the BuSpar, which we did. He took this, he did not notice any problems with it, but states when he woke up during the night, he was confused like he did not know where he was at, but then he went right back to sleep and then he woke up later and sort of pulled off the tape from his catheter tape and had a little injury on his leg. He has history of BPH. We talked about taking out the catheter today, but due to continued IV Lasix, he prefers to keep it. His pain has been under good control until he starts to get wraps or touching of his leg. He has not used any extra hydrocodone. He did take the Ativan twice yesterday. OBJECTIVE: Vital Signs: His temperature is 98. T-max in the last 24 hours was a 99.1. His pulse 77, blood pressure 124/47, respiratory rate 20, and O2 saturation of 92% on 4 L. He is on BiPAP at night. He is chronically on oxygen, but has it off this morning and states he does not know that he needs it right now. General: He is in no acute distress. Heart: Regular rate and rhythm with distant tones and a murmur. Respiratory: Lungs sounds are clear to auscultation bilaterally without crackles or wheezes. Extremities: Warm and dry. He still has 1+ edema in both ankles. He has tenderness, especially around the right anterior duncan. Left lower extremity still continues to have scabs. He denies itching them. He has no open sores on his leg, but has that clean fifth metatarsal plantar aspect wound that the bus and sys integration senior manager debrided the other day and noted there was no drainage. He does have some lymphedema changes on that left leg. Mental Status: He is alert. He is orientated x3. Psychiatric: He is polite. He is cooperative with me. He did admit he told the nurse to get the bleep out yesterday. It sounds like they were going back and forth about his medications. We discussed that his medication list is quite complicated, especially when he goes to specialists, and we just wanted to get things right. LABORATORY DATA: His white count 7.6, hemoglobin 10.9, and platelets 153. Sodium 141, potassium 3.6, chloride 102, bicarb 29, BUN 22, and creatinine 1.2. Glucose between 130 and 199, 137 this morning. Magnesium low at 1.6. Bilirubin down to 1.7. ALT normal at 28 and AST 44. His albumin was 3.2. His vancomycin was at 21. His wound culture from admission, he had serratia. It is sensitive to the Cipro, actually would be resistant to like Unasyn. His Staph aureus results are pending. ASSESSMENT: 1. Left lower extremity cellulitis due to serratia and Staph aureus. He is on day #3 of Cipro and vancomycin. The Staph aureus culture is pending. He will need to continue IV vancomycin for now. He has had some mild improvement in the redness. 2. Diabetic foot ulcer. We will continue local wound cares. I did okay a foot soak today. I will double check with Podiatry. We would like to avoid any prolonged soaking. 3. Type 2 diabetes, controlled with long-term insulin use with painful neuropathy. 4. Morbid obesity and lymphedema. 5. Hypomagnesemia. I will increase his oral magnesium. He did finally have a bowel movement today. 6. Obstructive sleep apnea, on BiPAP. 7. Severe chronic obstructive pulmonary disease, stable without exacerbation. He is oxygen-dependent. 8. Known history of coronary artery disease with stenting last fall. He is not having any chest pains. 9. Possible chronic diastolic heart failure. EF 65%. His BNP on admission was normal. 10.Gastroesophageal reflux disease with history of gastritis. 11.Iron deficiency anemia, started recently on iron which could constipate him. 12.Chronic kidney disease, stage 2. His creatinine has been stable. 13.Mildly elevated liver enzymes. These are improving. 14.Benign prostatic hyperplasia with Pedroza in place for accurate ins and outs due to aggressive diuresis. PLAN: At this point, the patient will continue acute cares. He will continue on the IV Lasix 80 mg twice daily. He will continue on the vancomycin and Cipro, and await the final culture on the staph before changing over to orals. He also will get the Eucerin-clobetasol combination to the rash with the okay given for some JANETTE wraps to help with swelling. Even though he still has some infection there, I do not feel it is going to be adequately treated until we can get some fluid out. Discussed with the patient that JANETTE wraps were not as aggressive as the other lymphedema treatments. For DVT prophylaxis he is on Lovenox. MKA: 07/14/2019 12:35:51 MODL: 07/14/2019 13:29:16 /[id number]
[2019-07-14] MEDS: YUPELRI 175 MCG/3 ML NEB SCH (20:07)
[2019-07-14] MEDS: Tamsulosin 0.4 MG Cap.ER PO SCH (21:04)
[2019-07-15] MEDS: Allopurinol 300 MG Tab PO SCH (05:59)
[2019-07-15] MEDS: Arformoterol 15 MCG/2 ML Neb Soln INH SCH ×2 (05:59→21:26)
[2019-07-15] MEDS: Pramipexole 0.5 MG Tab PO SCH ×3 (05:59→21:17)
[2019-07-15] MEDS: Acetaminophen/HYDROcodone 325-10 MG Tab PO SCH ×3 (05:59→21:17)
[2019-07-15] MEDS: Budesonide 0.5 MG/2 ML Neb Susp NEB SCH ×2 (05:59→21:26)
[2019-07-15] MEDS: Metoprolol Tartrate 25 MG Tab PO SCH ×2 (06:01→21:18)
[2019-07-15] MEDS: busPIRone 5 MG Tab PO SCH ×2 (07:49→21:00)
[2019-07-15] MEDS: Potassium Chloride 10 MEQ Tab.ER PO SCH ×2 (07:49→17:07)
[2019-07-15] MEDS: Magnesium Chloride 64 MG Tab.ER PO SCH ×3 (07:49→21:00)
[2019-07-15] MEDS: Ferrous Sulfate 325 MG Tab PO SCH (07:49)
[2019-07-15] MEDS: Ticagrelor 90 MG Tab PO SCH ×2 (07:49→21:00)
[2019-07-15] MEDS: Loratadine 10 MG Tab PO SCH (07:49)
[2019-07-15] MEDS: Colchicine 0.6 MG Tab PO SCH (07:49)
[2019-07-15] MEDS: Furosemide 100 MG/10 ML SDV IV SCH ×2 (07:50→15:34)
[2019-07-15] MEDS: Insulin Glarg,Human.Rec.Analog 100 Unit/ML SUBCUT SCH (07:55)
[2019-07-15] MEDS: Ciprofloxacin in D5W 200 MG in Premix Bag 1 BAG IV SCH ×4 (07:59→19:37)
[2019-07-15] MEDS: MINERAL OIL TOP SCH ×4 (07:59→21:25)
[2019-07-15] MEDS: [UNRECOGNIZED DRUG - OTHER] TOP SCH ×4 (07:59→21:25)
[2019-07-15] MEDS: CLOBETASOL TOP SCH ×4 (07:59→21:25)
[2019-07-15] MEDS: PETROLATUM TOP SCH ×4 (07:59→21:25)
[2019-07-15] MEDS: Enoxaparin 40 MG/0.4 ML Syringe SUBCUT SCH ×2 (09:26→21:37)
--- NOTE | 2019-07-15 11:34 | PN ---
Progress Note for DIANE ANDUJAR Date: 07/15/2019 Room #: VM.203 SUBJECTIVE: This is hospital day #4 on a 74-year-old admitted with a left lower extremity cellulitis and lymphedema with considerable leg swelling bilaterally. He has diuresed now 6 L. He is down 5 pounds. He is not having any breathing problems. He slept very poorly last night. He does feel his itching is better. He did have a T-max of 99.1 this morning. Otherwise, he has been afebrile. OBJECTIVE: Vital Signs: Weigt 146.05, temperature again 99.1, pulse 78, blood pressure 112/58, respiratory rate 20, O2 is 88 on room air. The patient is on oxygen for COPD chronically. Heart: Regular rate and rhythm. S1, S2 with murmur. Respiratory: Lung sounds are clear to auscultation bilaterally without crackles or wheezes. Abdomen: Distended. Extremities: Warm and dry. He has still 1+ edema on that right leg, it has improved. The left leg still has 1 to 2+ edema. There is redness with appears to be excoriations and scabs. The left plantar foot ulcer is examined. There is some just mild slough around it. Otherwise, it is clean. No drainage. Mental Status: He is alert. He is orientated x3. Psychiatric: He is very appropriate. No anxiety. No depression. General: No distress. LABORATORY DATA: His lab work today does show his white count normal at 7.3, hemoglobin 11.2, platelets 148. Sodium 144, potassium 4, chloride 105, bicarb 30, BUN 24, creatinine 1.3. Bilirubin down to 1.4. ASSESSMENT: 1. Severe left lower extremity cellulitis with lymphedema changes, improving, but slowly. Culture showing Serratia and Staph. We still do not have final report if this is MR assay or not, so he will continue day #4 Cipro and vancomycin. Anticipate he will likely need a full 7-day course of IV antibiotics, therefore, may need to transition to swing bed. He may even need a longer course like 10 to 14 days to be completed, possibly with orals. 2. Diabetic foot ulcer. Discussed with him local wound cares and referral to the Wound Clinic on discharge. 3. Type 2 diabetes, controlled with long-term insulin with painful neuropathy. 4. Morbid obesity and lymphedema. 5. Obstructive sleep apnea on BiPAP. 6. Hypomagnesemia. 7. Severe chronic obstructive pulmonary disease, stable without exacerbation. 8. History of coronary artery disease and stenting last fall. He is not having any chest pain. 9. Chronic diastolic heart failure. EF 65%. His BNP was normal. 10.Gastroesophageal reflux disease with history of gastritis. 11.Iron-deficiency anemia. He is on iron. 12.Chronic kidney disease, stage 2. His kidney function is stable. 13.Elevated liver enzymes, improving. This could be due to hepatic congestion from fluid. 14.Benign prostatic hyperplasia with Pedroza in place for aggressive diuresis and in and out accurate assessment. PLAN: At this point, the patient will continue acute cares with IV Lasix and IV antibiotics. We will await final culture. We will continue the Eucerin and clobetasol cream on his legs with wraps, elevation. We will give him Benadryl tonight to see if this helps with his sleep. For DVT prophylaxis, he is on Lovenox. We will have Acid Recovery Operator involved in his care and also have him assessed by therapies to see if he qualifies for a swing bed stay. I assume these antibiotics will be at least twice per day to complete at least a total of 7 days. MKA: 07/15/2019 10:48:17 MODL: 07/15/2019 11:26:25 /[id number] GORDY
[2019-07-15] MEDS ORDERED: diphenhydrAMINE 25 MG Cap PO SCH (20:00)
[2019-07-15] MEDS: YUPELRI 175 MCG/3 ML NEB SCH (21:25)
[2019-07-15] MEDS: LORazepam 0.5 MG Tab PO PRN (21:26)
[2019-07-15] MEDS: Tamsulosin 0.4 MG Cap.ER PO SCH (21:26)
[2019-07-16] MEDS: Metoprolol Tartrate 25 MG Tab PO SCH (05:58)
[2019-07-16] MEDS: Allopurinol 300 MG Tab PO SCH (05:58)
[2019-07-16] MEDS: Acetaminophen/HYDROcodone 325-10 MG Tab PO SCH ×2 (05:59→15:09)
[2019-07-16] MEDS: Pramipexole 0.5 MG Tab PO SCH ×2 (05:59→15:09)
[2019-07-16] MEDS: Arformoterol 15 MCG/2 ML Neb Soln INH SCH (06:00)
[2019-07-16] MEDS: Budesonide 0.5 MG/2 ML Neb Susp NEB SCH (06:00)
[2019-07-16] MEDS: Insulin Glarg,Human.Rec.Analog 100 Unit/ML SUBCUT SCH (06:55)
[2019-07-16] MEDS: Loratadine 10 MG Tab PO SCH (07:42)
[2019-07-16] MEDS: Ticagrelor 90 MG Tab PO SCH (07:42)
[2019-07-16] MEDS: Furosemide 100 MG/10 ML SDV IV SCH (07:42)
[2019-07-16] MEDS: Ferrous Sulfate 325 MG Tab PO SCH (07:42)
[2019-07-16] MEDS: Potassium Chloride 10 MEQ Tab.ER PO SCH (07:42)
[2019-07-16] MEDS: Colchicine 0.6 MG Tab PO SCH (07:42)
[2019-07-16] MEDS: Ciprofloxacin in D5W 200 MG in Premix Bag 1 BAG IV SCH ×2 (07:43)
[2019-07-16] MEDS: Magnesium Chloride 64 MG Tab.ER PO SCH ×2 (07:43→15:08)
[2019-07-16] MEDS: busPIRone 5 MG Tab PO SCH (07:43)
[2019-07-16] MEDS: [UNRECOGNIZED DRUG - OTHER] TOP SCH ×2 (07:44)
[2019-07-16] MEDS: CLOBETASOL TOP SCH ×2 (07:44)
[2019-07-16] MEDS: MINERAL OIL TOP SCH ×2 (07:44)
[2019-07-16] MEDS: PETROLATUM TOP SCH ×2 (07:44)
[2019-07-16 08:36] LABS: ANION GAP 14.9 mmol/L (10-20)
[2019-07-16 15:57] VITALS: BP 117/54; PULSE 80
[2019-07-16] MEDS ORDERED: Furosemide 40 MG/4 ML VIAL IV SCH (16:00)
--- NOTE | 2019-07-17 03:42 | DISCH ---
PRIMARY DISCHARGE DIAGNOSES: 1. Left lower extremity cellulitis due to a diabetic foot ulcer due to Serratia and Staphylococcus aureus. We are not aware if this is methicillin-resistant Staphylococcus aureus or not. 2. Diabetic foot ulcer on his left foot 5th plantar aspect, clean, recently debrided by Podiatry. 3. Type 2 diabetes, controlled with long-term insulin use and painful neuropathy. 4. Morbid obesity with lymphedema. He is down 8 L of diuresis during his stay. 5. Obstructive sleep apnea, on bilevel positive airway pressure. 6. Hypomagnesemia. 7. Severe chronic obstructive pulmonary disease, stable without exacerbation. 8. History of coronary artery disease and stenting last fall. He is not having any chest pain. 9. Chronic diastolic heart failure. His EF was 65% and BNP normal on this stay. 10.Gastroesophageal reflux disease with history of gastritis. 11.Iron deficiency anemia, on iron. 12.Chronic kidney disease stage 2. Creatinine bumped up slightly to 1.4 with diuresis. 13.[place] therapeutic vancomycin. His level was 31 this morning. Dose is being adjusted by Pharmacy. 14.Elevated liver enzymes, improving, possibly hepatic congestion from fluid. 15.Benign prostatic hyperplasia with Pedroza in place. He is having a little bit of hematuria. Therefore, we had stopped his Lovenox for deep venous thrombosis prophylaxis as he is also on Brilinta for his heart stents. He does not take aspirin due to bleeding problems. 16.Anxiety. He was started on BuSpar. He had been using some Ativan at home. He seems to be responding well to this. REASON FOR ADMISSION: On the date of admission, this 74-year-old male came into the clinic to see myself and Podiatry. His left leg was red and warm. It had gotten worse over few days, but the swelling had been worse really over weeks. He was up 4 pounds. He felt maybe he was a little bit more short of breath, but the next day in the hospital, he stated his breathing was not any different. Initially, he was monitored with telemetry. He had proBNP of 79. Troponin was normal. He had a creatinine of 1.2 on admission. His blood sugars were all monitored and they were all between like 96 and the 160s. He had a couple of readings up to 200, but nothing worrisome. His hemoglobins were monitored and they all stayed stable in the 10 to 11 range. Due to his BPH and aggressive diuresis, he did have a Pedroza in place. It was starting to irritate him a little bit today. We checked it for any infection. There was no infection, but a few blood cells. He was maintained on Cipro 200 b.i.d. and vancomycin IV while awaiting final cultures. His blood culture was negative, and his lab work did not show elevated white count at all. His wound was not felt to be deep enough to be causing any osteomyelitis, but there was some skin breakdown. He was recommended by Podiatry a month ago to limit weightbearing on that foot. He was up. He was walking in the halls with his slippers. Recommendations were for limited weightbearing on that left foot and to go to the [facility], get some surgical shoes for offloading. It was discussed with the patient he had some very slow improvement in his leg, but today it did look quite a bit better than it had been. Therefore, recommendations were made to go over to swing bed to complete a full 1 week course of IV antibiotics and also waiting for the final staff report. He otherwise just has not felt well since his stent a few months ago. It was discussed with him that when he had his first heart attack and stenting, he was much younger. He definitely has been more anxious. In just the last few days, the BuSpar potentially is helping him. The goal would be to cut back further on Ativan because he is on narcotics and he has been unable to wean off them at home for his painful diabetic neuropathy, but he is not using any additional p.r.n. doses of pain pills. OBJECTIVE: Vital signs: On discharge today, his temperature is 97.8, pulse 80, blood pressure 117/54, respiratory rate 20, and O2 of 95% on 4 L. He is chronically on oxygen for his COPD. General: He is in no acute distress. Heart: Regular rate and rhythm with murmur. Lungs: Sounds were clear to auscultation bilaterally without crackles or wheezes. Abdomen: Nondistended, nontender. Extremities: Still with 1+ edema to both legs, but the redness has faded. It is still lightly pink with some excoriation and thin scabs on that left leg. It is mildly tender and mildly warm, but overall much improved. The right leg still has some trace tenderness as well. Mental status: He is alert. He is orientated x3. DISCHARGE PLANS AND INSTRUCTIONS: Pedroza out today. Over to swing bed for further IV antibiotics, vancomycin, and Cipro until the . If he is not having staph, he may be changed to another regimen. He will continue his same Lantus 160 units daily with the regular q.i.d. Accu-Cheks. We will continue local wound cares on his foot. Podiatry did not recommend soaking, just keeping it clean and dry. Will do the Joshua wraps with clobetasol and Eucerin cream for the lymphedema. He has also had plans to follow up with Dermatology and has already seen them and had a biopsy. He is on Benadryl at bedtime to help with the itching and overall he feels that things might be just slightly improving there too. Greater than 30 minutes spent on the discharge process. MKA: 07/16/2019 22:18:59 MODL: 07/17/2019 03:32:43 /[id number]
== END 2019-07-16 15:43 | disposition swing bed (61) | DRG 638 ==
LOC: VM.MS 15:15
PROVIDERS: ADMIT Internal Medicine; ATTEND Internal Medicine
DX: E11.628 Type 2 diabetes mellitus with other skin complications (principal); L03.116 Cellulitis of left lower limb; L97.429 Non-pressure chronic ulcer of left heel and midfoot with unspecified severity; I50.32 Chronic diastolic (congestive) heart failure; I13.0 Hypertensive heart and chronic kidney disease with heart failure and stage 1 through stage 4 chronic kidney disease, or unspecified chronic kidney disease; E11.621 Type 2 diabetes mellitus with foot ulcer; E66.01 Morbid (severe) obesity due to excess calories; I89.0 Lymphedema, not elsewhere classified; G47.33 Obstructive sleep apnea (adult) (pediatric); E83.42 Hypomagnesemia; J44.9 Chronic obstructive pulmonary disease, unspecified; K21.9 Gastro-esophageal reflux disease without esophagitis; D50.9 Iron deficiency anemia, unspecified; N18.2 Chronic kidney disease, stage 2 (mild); I25.10 Atherosclerotic heart disease of native coronary artery without angina pectoris; K76.1 Chronic passive congestion of liver; N40.1 Benign prostatic hyperplasia with lower urinary tract symptoms; R31.9 Hematuria, unspecified; F41.9 Anxiety disorder, unspecified; E11.42 Type 2 diabetes mellitus with diabetic polyneuropathy; Z96.653 Presence of artificial knee joint, bilateral; Z88.8 Allergy status to other drugs, medicaments and biological substances; Z79.899 Other long term (current) drug therapy; Z90.49 Acquired absence of other specified parts of digestive tract; Z99.81 Dependence on supplemental oxygen
CPT/HCPCS: 36415; 51702; 80048; 80053; 80202; 82962; 83605; 83735; 85025; 87040; 87070; 87077; 87186; 87205; 94640; 94760; 97162-GP; A9270-GY; J0744; J1650; J1815-GY; J1940; J3370; J7050; J7620-GY

== ENCOUNTER 2019-07-16 13:41 | Inpatient (IN) | payer MEDICARE, BC ==
[2019-07-16] MEDS ORDERED: Albuterol 0.083% 2.5 MG/3 ML Neb Soln NEB PRN (17:12)
[2019-07-16] MEDS ORDERED: Acetaminophen 325 MG Tab PO PRN (17:12)
[2019-07-16] MEDS ORDERED: Acetaminophen/HYDROcodone 325-10 MG Tab PO PRN (17:12)
[2019-07-16] MEDS ORDERED: Sodium Chloride 0.9% 10 ML Syringe FLUSH PRN (17:12)
[2019-07-16] MEDS ORDERED: Nitroglycerin 0.4 MG Tab.SL SL PRN (17:12)
[2019-07-16] MEDS ORDERED: LORazepam 0.5 MG Tab PO PRN (17:12)
[2019-07-16] MEDS: Metoprolol Tartrate 25 MG Tab PO SCH (20:17)
[2019-07-16] MEDS: Ticagrelor 90 MG Tab PO SCH (20:17)
[2019-07-16] MEDS: Potassium Chloride 10 MEQ Tab.ER PO SCH (20:17)
[2019-07-16] MEDS: Magnesium Chloride 64 MG Tab.ER PO SCH (20:17)
[2019-07-16] MEDS: diphenhydrAMINE 25 MG Cap PO SCH (20:17)
[2019-07-16] MEDS: Tamsulosin 0.4 MG Cap.ER PO SCH (20:18)
[2019-07-16] MEDS: Pramipexole 0.5 MG Tab PO SCH (20:18)
[2019-07-16] MEDS: Acetaminophen/HYDROcodone 325-10 MG Tab PO SCH (20:18)
[2019-07-16] MEDS: Ciprofloxacin in D5W 200 MG in Premix Bag 1 BAG IV SCH ×2 (20:19)
[2019-07-16] MEDS: busPIRone 5 MG Tab PO SCH (20:19)
[2019-07-16] MEDS: FLAXSEED OIL 1000 MG PO SCH (20:21)
[2019-07-16] MEDS: YUPELRI 175 MCG/3 ML NEB SCH (20:22)
[2019-07-16] MEDS: Arformoterol 15 MCG/2 ML Neb Soln INH SCH (21:39)
[2019-07-16] MEDS: Budesonide 0.5 MG/2 ML Neb Susp NEB SCH (21:40)
[2019-07-17] MEDS: FLAXSEED OIL 1000 MG PO SCH ×3 (06:32→20:38)
[2019-07-17] MEDS: Insulin Glarg,Human.Rec.Analog 100 Unit/ML SUBCUT SCH (06:33)
[2019-07-17] MEDS: Pramipexole 0.5 MG Tab PO SCH ×3 (06:34→20:35)
[2019-07-17] MEDS: Acetaminophen/HYDROcodone 325-10 MG Tab PO SCH ×3 (06:35→20:35)
[2019-07-17] MEDS: Allopurinol 300 MG Tab PO SCH (06:35)
[2019-07-17] MEDS: Metoprolol Tartrate 25 MG Tab PO SCH ×2 (06:35→20:39)
[2019-07-17] MEDS: Arformoterol 15 MCG/2 ML Neb Soln INH SCH ×2 (06:56→21:02)
[2019-07-17] MEDS: Budesonide 0.5 MG/2 ML Neb Susp NEB SCH ×2 (06:56→21:02)
[2019-07-17] MEDS: Magnesium Chloride 64 MG Tab.ER PO SCH ×3 (08:14→19:50)
[2019-07-17] MEDS: Loratadine 10 MG Tab PO SCH (08:14)
[2019-07-17] MEDS: Ferrous Sulfate 325 MG Tab PO SCH (08:14)
[2019-07-17] MEDS: Potassium Chloride 10 MEQ Tab.ER PO SCH ×2 (08:14→17:28)
[2019-07-17] MEDS: busPIRone 5 MG Tab PO SCH ×2 (08:14→19:50)
[2019-07-17] MEDS: Torsemide 20 MG Tab PO SCH ×2 (08:14→15:18)
[2019-07-17] MEDS: Colchicine 0.6 MG Tab PO SCH (08:15)
[2019-07-17] MEDS: Ticagrelor 90 MG Tab PO SCH ×2 (08:15→19:50)
[2019-07-17] MEDS: Ciprofloxacin in D5W 200 MG in Premix Bag 1 BAG IV SCH ×4 (08:15→19:49)
[2019-07-17 08:38] LABS: CHLORIDE,CL 103 mmol/L (98-107); SODIUM,NA 143 mmol/L (136-145)
[2019-07-17 08:39] LABS: ANION GAP 14.1 mmol/L (10-20)
[2019-07-17] MEDS: MINERAL OIL TOP SCH ×6 (09:42→19:50)
[2019-07-17] MEDS: CLOBETASOL TOP SCH ×6 (09:42→19:50)
[2019-07-17] MEDS: PETROLATUM TOP SCH ×6 (09:42→19:50)
[2019-07-17] MEDS: [UNRECOGNIZED DRUG - OTHER] TOP SCH ×6 (09:42→19:50)
[2019-07-17] MEDS: diphenhydrAMINE 25 MG Cap PO SCH (19:50)
[2019-07-17] MEDS: Tamsulosin 0.4 MG Cap.ER PO SCH (20:34)
[2019-07-17] MEDS: YUPELRI 175 MCG/3 ML NEB SCH (20:39)
[2019-07-18] MEDS: Arformoterol 15 MCG/2 ML Neb Soln INH SCH ×2 (06:11→22:03)
[2019-07-18] MEDS: Budesonide 0.5 MG/2 ML Neb Susp NEB SCH ×2 (06:11→22:03)
[2019-07-18] MEDS: Acetaminophen/HYDROcodone 325-10 MG Tab PO SCH ×3 (06:11→20:19)
[2019-07-18] MEDS: Metoprolol Tartrate 25 MG Tab PO SCH ×2 (06:12→20:19)
[2019-07-18] MEDS: Pramipexole 0.5 MG Tab PO SCH ×3 (06:12→20:18)
[2019-07-18] MEDS: Allopurinol 300 MG Tab PO SCH (06:12)
[2019-07-18] MEDS: Insulin Glarg,Human.Rec.Analog 100 Unit/ML SUBCUT SCH (06:12)
[2019-07-18] MEDS: FLAXSEED OIL 1000 MG PO SCH ×3 (06:15→20:22)
[2019-07-18] MEDS: Ticagrelor 90 MG Tab PO SCH ×2 (07:41→20:18)
[2019-07-18] MEDS: busPIRone 5 MG Tab PO SCH ×2 (07:41→20:18)
[2019-07-18] MEDS: Potassium Chloride 10 MEQ Tab.ER PO SCH ×2 (07:41→17:32)
[2019-07-18] MEDS: Colchicine 0.6 MG Tab PO SCH (07:41)
[2019-07-18] MEDS: Torsemide 20 MG Tab PO SCH ×2 (07:41→15:22)
[2019-07-18] MEDS: Ferrous Sulfate 325 MG Tab PO SCH (07:41)
[2019-07-18] MEDS: Loratadine 10 MG Tab PO SCH (07:41)
[2019-07-18] MEDS: Magnesium Chloride 64 MG Tab.ER PO SCH ×3 (07:41→20:18)
[2019-07-18] MEDS: Ciprofloxacin in D5W 200 MG in Premix Bag 1 BAG IV SCH ×4 (07:42→20:18)
[2019-07-18] MEDS: PETROLATUM TOP SCH ×4 (07:47→20:22)
[2019-07-18] MEDS: [UNRECOGNIZED DRUG - OTHER] TOP SCH ×4 (07:47→20:22)
[2019-07-18] MEDS: CLOBETASOL TOP SCH ×4 (07:47→20:22)
[2019-07-18] MEDS: MINERAL OIL TOP SCH ×4 (07:47→20:22)
[2019-07-18] MEDS ORDERED: diphenhydrAMINE 25 MG Cap PO PRN (08:45)
[2019-07-18] MEDS: Tamsulosin 0.4 MG Cap.ER PO SCH (20:18)
[2019-07-18] MEDS: YUPELRI 175 MCG/3 ML NEB SCH (20:23)
--- NOTE | 2019-07-18 22:36 | PCM.SN ---
- Free Text/Narrative Note: Patient on bed day on day 7 of IV ABX planned to complete a full course tomorrow of IV and then home on orals but still awaiting Staph susceptibilities. He is on Vanco should be BID but had some high levels so is requiring regular labs and pharmacy adjustments. He is on cipro BID. The leg is finally improving. Swelling is pretty extensive in the foot. He is agreeable to sveta wraps. Plan is home tomorrow on orals for another 6 days for a 14 day course. Lab in the AM again for kidney monitoring. His diuretics are now oral but increased from his home dose. He had frequent voiding but small amounts so a bladder scan today.
[2019-07-19 04:57] VITALS: PULSE 77
[2019-07-19] MEDS: Arformoterol 15 MCG/2 ML Neb Soln INH SCH (06:14)
[2019-07-19] MEDS: Acetaminophen/HYDROcodone 325-10 MG Tab PO SCH (06:14)
[2019-07-19] MEDS: Allopurinol 300 MG Tab PO SCH (06:14)
[2019-07-19] MEDS: Budesonide 0.5 MG/2 ML Neb Susp NEB SCH (06:14)
[2019-07-19] MEDS: Metoprolol Tartrate 25 MG Tab PO SCH (06:14)
[2019-07-19] MEDS: Pramipexole 0.5 MG Tab PO SCH (06:14)
[2019-07-19] MEDS: Insulin Glarg,Human.Rec.Analog 100 Unit/ML SUBCUT SCH (06:15)
[2019-07-19] MEDS: FLAXSEED OIL 1000 MG PO SCH (06:15)
[2019-07-19 06:16] VITALS: BP 128/71
[2019-07-19] MEDS: Ferrous Sulfate 325 MG Tab PO SCH (07:37)
[2019-07-19] MEDS: Torsemide 20 MG Tab PO SCH (07:37)
[2019-07-19] MEDS: Ticagrelor 90 MG Tab PO SCH (07:37)
[2019-07-19] MEDS: Loratadine 10 MG Tab PO SCH (07:38)
[2019-07-19] MEDS: Potassium Chloride 10 MEQ Tab.ER PO SCH (07:38)
[2019-07-19] MEDS: Colchicine 0.6 MG Tab PO SCH (07:38)
[2019-07-19] MEDS: Magnesium Chloride 64 MG Tab.ER PO SCH ×2 (07:38→11:40)
[2019-07-19] MEDS: busPIRone 5 MG Tab PO SCH (07:38)
[2019-07-19] MEDS: Ciprofloxacin in D5W 200 MG in Premix Bag 1 BAG IV SCH ×2 (07:40)
[2019-07-19] MEDS: CLOBETASOL TOP SCH ×2 (07:41)
[2019-07-19] MEDS: [UNRECOGNIZED DRUG - OTHER] TOP SCH ×2 (07:41)
[2019-07-19] MEDS: MINERAL OIL TOP SCH ×2 (07:41)
[2019-07-19] MEDS: PETROLATUM TOP SCH ×2 (07:41)
--- NOTE | 2019-07-19 22:10 | DISCH ---
DATE OF ACUTE CARE ADMISSION: 07/12/19 Swing bed dates 07/16-07/19/19 PRIMARY DISCHARGE DIAGNOSES: 1. Diabetic foot ulcer with left lower extremity cellulitis due to Serratia and Staphylococcus aureus, methicillin sensitive. 2. Type 2 diabetes, controlled with long-term insulin use and painful neuropathy. 3. Morbid obesity with lymphedema. 4. Obstructive sleep apnea, on bilevel positive airway pressure. 5. Hypomagnesemia. 6. Severe chronic obstructive pulmonary disease, stable without exacerbation. 7. History of coronary artery disease and stenting last fall. 8. Chronic diastolic heart failure. His BNP was normal on this admission. 9. Gastroesophageal reflux disease with history of gastritis. 10.Benign prostatic hyperplasia without history of urinary retention. Pedroza was used for strict I's and O's while on acute care and IV Lasix. He had a postvoid that was under 50 on swing bed. 11.Chronic kidney disease stage 2. His creatinine was 1.4. This is around his baseline. It was 1.2 on admission. 12.[place] therapeutic vancomycin. These levels came down and doses were adjusted. 13.Elevated liver enzymes, improving, possibly due to hepatic congestion from fluid. 14.Anxiety. Started on BuSpar. He was tolerating that, but he was having some trouble sleeping. REASON FOR ADMISSION: On the date of admission, this 74-year-old male was transferred from acute care over to swing bed to complete a 7 course of IV antibiotics along with waiting for the final culture results as his staph was unknown if it was MRSA or not. He remained on IV Cipro and IV vancomycin, which had to be decreased to once a day due to the levels. He had a significant improvement in the cellulitis, but it did happen slow and gradually. Due to the overall condition with his venous stasis, we are recommending he have a full 2-week course of antibiotics. He may now continue with the Joshua wraps. Initially, we did not want to wrap it too much with the cellulitis, but just kept it elevated. He did not have any worsening of his breathing. Overall, he still had quite a bit of swelling, but was down at least 8 L and weight is down from his clinic weight also. He had actually met with the vascular doctor last fall about possibly pursuing some vascular procedures. However, it does not appear anything ever got arranged. He also had an SAKINA done by myself that was normal at rest last fall. His foot ulcer started due to a wart/sore on his foot that he was putting some Compound W on. He also has extensive rash that he saw Dermatology for and he has even had a biopsy, but interestingly the rash seemed to have improved while he was here on IV antibiotics. I had actually treated with ABX creams thinking it was possibly folliculitis in the past. He did receive some Benadryl for the itching. However, then, he seemed to have more trouble with urinary retention, just being only able to go a small amount. He was given some Eucerin cream mixed with Vaseline on his legs and this seemed to help too. Overall, on discharge, discussion was had with him and his . They declined home health, but did instruct him that PT/OT could be helpful for safety evaluation. PHYSICAL EXAMINATION: Vital signs: His discharging vitals were weight of 146.1 kg today, temperature 98, pulse 77, blood pressure 128/51, respiratory rate 18, and O2 of 95% on room air. General: He is in no acute distress. Heart: Regular rate and rhythm with murmur noted. Lungs: Sounds are clear to auscultation bilaterally without crackles or wheezes. Abdomen: Has positive bowel sounds. It is soft, nontender. Extremities: Warm and dry. There is still 1+ edema in both shins. His excoriations and redness had significantly improved. Still some mild pink, but no warmth to that left leg. The left foot sore on the plantar aspect 5th MTP was noted. There was no slough or abnormal drainage. It is not having any odor. We have been using a padded dressing. He was unable to tolerate the shoes that Podiatry recommended he wear. We recommended him for offloading and referred him to the [facility]ound Clinic. DISCHARGE PLANS AND INSTRUCTIONS: The patient is going home on another 6 days of doxycycline twice daily. He will also be on buspirone 5 mg twice daily as a new medication. His hydrocodone will be at 1 pill 3 times a day. He was trying a half pill in the past, but that just did not seem to help him. He may also continue to use Ativan sparingly if needing it for his anxiety while the BuSpar starts working and his Demadex was increased to 60 mg twice daily. He will follow up in the clinic with Dr. Panchal in 1 week with a BMP and CBC at that time. He will follow up in the [facility]ound Clinic. He will have Joshua wraps to his legs even at night to promote swelling improvement. I will get in touch again with Vascular Surgery on his behalf. He should also be on yogurt to continue for at least 2 weeks even after finishing antibiotics. He will see the [facility]. He will continue his BiPAP and oxygen. Medications sent up to [facility]. He can also continue to follow with Podiatry. He will limit walking on that foot and use a walker for offloading. He will use the clobetasol, petroleum, Vaseline type cream on the legs. Greater than 30 minutes spent on this discharge process. MKA: 07/19/2019 17:42:42 MODL: 07/19/2019 22:02:11 /[id number]
== END 2019-07-19 13:50 | disposition home or self-care (01) | DRG 638 ==
LOC: VM.MS 15:45
PROVIDERS: ADMIT Internal Medicine; ATTEND Internal Medicine
DX: E11.628 Type 2 diabetes mellitus with other skin complications (principal); L03.116 Cellulitis of left lower limb; I50.32 Chronic diastolic (congestive) heart failure; B95.61 Methicillin susceptible Staphylococcus aureus infection as the cause of diseases classified elsewhere; E11.621 Type 2 diabetes mellitus with foot ulcer; E66.01 Morbid (severe) obesity due to excess calories; G47.33 Obstructive sleep apnea (adult) (pediatric); E83.42 Hypomagnesemia; J44.9 Chronic obstructive pulmonary disease, unspecified; N18.2 Chronic kidney disease, stage 2 (mild); F41.9 Anxiety disorder, unspecified; N40.0 Benign prostatic hyperplasia without lower urinary tract symptoms; I89.0 Lymphedema, not elsewhere classified
CPT/HCPCS: 36415; 51798; 80048; 80202; 81001; 82962; 83735; 85025; 94640; 94760; A9270-GY; J0744; J1815-GY; J3370; J7050